=== PATIENT | female | born 1935 | race Caucasian/White ===

== ENCOUNTER → 2016-08-02 | Outpatient (CLI) | payer MEDICARE, OTHER ==
--- NOTE | 2016-08-03 08:16 | XCELERA REPORT ---
[address] [address] Lower Extremity Venous Evaluation Name: REMIGIO GOMEZ Age: 81 yrs Gender: Female : 1935 Patient Status: Outpatient Patient Location: Study Date: 08/02/2016 04:33 PM Procedure: Color flow and duplex imaging of the veins of the left lower extremity as well as the right Common Femoral vein. Reason For Study: LLE PAIN, SWELLING Ordering Physician: JOHNY WOOD Performed By: Roxane Sanchez Right Sided Venous Evaluation The right common femoral vein is fully compressible. Spontaneous and phasic flow is present in the right common femoral vein. Left Sided Venous Evaluation Normal vessel filling wall to wall, compression and augmentation as well as Colour flow down to the infrageniculate veins. Critical Findings Called [phone] at about 1700. Interpretation Summary No duplex evidence of DVT or obstruction in the left lower extremity nor in the right Common Femoral vein. : JOHNY WOOD > Nazario Ugalde
== END ==
LOC: SP 15:45
PROVIDERS: ATTEND Orthopaedic Surgery
DX: M79.605 Pain in left leg (principal); M79.89 Other specified soft tissue disorders
CPT/HCPCS: 93971

== ENCOUNTER → 2016-12-22 | Outpatient (CLI) | payer MEDICARE, OTHER ==
--- NOTE | 2016-12-22 16:28 | RADIOLOGY REPORT (SQ) ---
EXAM DESCRIPTION: T SPINE AP/LAT COMPLETED DATE/TIME: 12/22/2016 4:18 pm REASON FOR STUDY: LOW BACK PAIN I67.1 CEREBRAL ANEURYSM, NONRUPTURED M54.6 PAIN IN THORACIC SPINE M54.5 LOW BACK PAIN COMPARISON: None. NUMBER OF VIEWS: Two views. TECHNIQUE: AP and lateral radiographic images acquired of the thoracic spine. LIMITATIONS: None. FINDINGS: MINERALIZATION: Normal. ALIGNMENT: Normal. No scoliosis. Exaggerated kyphotic curvature. VERTEBRAE: No fracture or bone lesion. Maintained height, normal segmentation. DISCS: Mild disc space narrowing with small osteophytes. HARDWARE: None in the spine. MEDIASTINUM AND SOFT TISSUES: Normal heart size and aortic contour. No soft tissue abnormality. VISUALIZED LUNG STONE: Clear. OTHER: No other significant finding. IMPRESSION: CHRONIC DEGENERATIVE CHANGES. NO ACUTE FINDINGS. TECHNICAL DOCUMENTATION: JOB ID: [id number] [employer]- All Rights Reserved
--- NOTE | 2016-12-22 16:29 | RADIOLOGY REPORT (SQ) ---
EXAM DESCRIPTION: L SPINE 2 VIEWS COMPLETED DATE/TIME: 12/22/2016 4:18 pm REASON FOR STUDY: LOW BACK PAIN I67.1 CEREBRAL ANEURYSM, NONRUPTURED M54.6 PAIN IN THORACIC SPINE M54.5 LOW BACK PAIN COMPARISON: CT abdomen pelvis dated 01/01/2014. NUMBER OF VIEWS: Five views including obliques. TECHNIQUE: AP, lateral, oblique, and sacral radiographic images acquired of the lumbar spine. LIMITATIONS: None. FINDINGS: MINERALIZATION: Normal. SEGMENTATION: Normal. No transitional anatomy. ALIGNMENT: Mild S-shaped curvature. 5 mm retrolisthesis of L 2 on L3. VERTEBRAE: Old compression deformity of L2 with kyphoplasty cement. No acute fractures. DISCS: Mild disc space narrowing with small osteophytes. POSTERIOR ELEMENTS: Pedicles and facets are intact. No pars defect or posterior arch defects. HARDWARE: None in the spine. PARASPINAL SOFT TISSUES: Normal. PELVIS: Intact as visualized. No fractures or worrisome bone lesions. SI joints intact. OTHER: No other significant finding. IMPRESSION: CHRONIC DEGENERATIVE CHANGES. OLD COMPRESSION FRACTURE OF L2 WITH KYPHOPLASTY CEMENT. NO APPARENT ACUTE FINDINGS. TECHNICAL DOCUMENTATION: JOB ID: [id number] [employer]- All Rights Reserved
--- NOTE | 2016-12-22 18:40 | RADIOLOGY REPORT (SQ) ---
EXAM DESCRIPTION: MRA HEAD WITHOUT COMPLETED DATE/TIME: 12/22/2016 5:09 pm REASON FOR STUDY: CEREBRAL ANEURYSM I67.1 CEREBRAL ANEURYSM, NONRUPTURED M54.6 PAIN IN THORACIC SP INE M54.5 LOW BACK PAIN COMPARISON: Yearly since 2006 TECHNIQUE: Axial 3-D [id number] acquisition imaging performed through the brain in the area of t he [place]. Images reformatted using 3-D MIPS. LIMITATIONS: None. FINDINGS: Source images demonstrated old right temporal craniotomy. There is encephalomalacia in th e anterior right temporal lobe, stable compared to the previous exams. 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 This measures 1.4 x 1 cm in greatest diameter, and is unchan ged from 2006. 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 There is good flow in the remainder of the anterior circulation including the right and left middle c erebral artery and anterior cerebral arteries. Patent right posterior communicating artery. Vertebr obasilar system is unremarkable. IMPRESSION: Stable [place] MRA exam compared to studies dating back to 2006 TECHNICAL DOCUMENTATION: JOB ID: [id number]- All Rights Reserved
== END ==
LOC: RAD 15:38
PROVIDERS: ATTEND Internal Medicine
DX: I67.1 Cerebral aneurysm, nonruptured (principal); M54.6 Pain in thoracic spine; M54.5 Low back pain
CPT/HCPCS: 70544; 72070; 72100

== ENCOUNTER → 2017-02-26 | Outpatient (CLI) | payer MEDICARE, OTHER ==
--- NOTE | 2017-02-27 08:39 | RADIOLOGY REPORT (SQ) ---
EXAM DESCRIPTION: MRI HEAD COMBO COMPLETED DATE/TIME: 02/26/2017 3:28 pm REASON FOR STUDY: (H53.8) OTHER VISUAL DISTURBANCES (H57.12) OCULAR PAIN, LEFT EYE OTHER VISU H53.8 OTHER VISUAL DISTURBANCES H57.12 OCULAR PAIN, LEFT EYE COMPARISON: MRA of the head dated 12/22/2016 TECHNIQUE: Multiplanar imaging includes noncontrasted T1, T2, FLAIR, Diffusion with ADC map and post gadolinium contrast T1 sequences. Images stored on PACS. CONTRAST TYPE AND DOSE: 10 mL MultiHance RENAL FUNCTION: GFR > 60. LIMITATIONS: None. FINDINGS: ANATOMY: No anomalies. Normal vascular flow voids. Pituitary fossa normal. CSF SPACES: Atrophy-induced prominence of CSF spaces and ventricles. CEREBRUM: High-signal intensity lesions scattered throughout the white matter on FLAIR imaging with d istribution suggesting chronic micro-vascular ischemic change. No evidence of hemorrhage, mass, extra axial fluid collection or acute ischemic change. No enhancing lesions. There is focal encephalomalac ia in the right temporal lobe most consistent with an area of prior infarction. POSTERIOR FOSSA: No signal alteration. No hemorrhage. No edema, masses, or mass effect. Internal annie tory canals, cerebello-pontine angles, mastoids normal. No enhancing lesions. ORBITS: No masses. Globes normal. PARANASAL SINUSES: No fluid levels. Mucosa normal. DIFFUSION: Normal. No evidence of recent infarct. OTHER: Again there is occlusion of the right internal carotid artery. IMPRESSION: ATROPHY AND CHRONIC MICRO-VASCULAR ISCHEMIC CHANGES. 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 Other findings as noted above EVIDENCE OF ACUTE STROKE: NO. TECHNICAL DOCUMENTATION: JOB ID: [id number] [employer]- All Rights Reserved
== END ==
LOC: RAD 13:16
PROVIDERS: ATTEND Ophthalmology
DX: H53.8 Other visual disturbances (principal); H57.12 Ocular pain, left eye
CPT/HCPCS: 82565; 70553; A9577

== ENCOUNTER 2017-04-20 09:40 | Emergency (ER) | payer MEDICARE, OTHER ==
--- NOTE | 2017-04-20 10:01 | ER Document Report ---
ED Neuro Symptoms/Deficit - General Mode of Arrival: Medic Cannot obtain history due to: Altered mental status TRAVEL OUTSIDE OF THE [place] IN LAST 30 DAYS: No <KYRA FRAZIER - Last Filed: 04/20/17 11:27> <[email or web address] - Last Filed: 04/20/17 12:42> - General Chief Complaint: Altered Mental Status Stated Complaint: HEAD INJURY Time Seen by Provider: 04/20/17 09:45 - HPI Notes: 81-year-old female with a history of hypertension, hyperlipidemia, hyperthyroidism, GERD, CAD presents today via EMS with a GCS of 8. Patient fell at her dentist on April 17, at 1630 (4 days ago) hit the left side of her head. reports that patient did not go to any emergency services at that time for evaluation of head trauma. Per her , prior to head trauma , patient was awake alert, responsive, full functioning individual. noticed 2 days ago, patient started having garbled speech. also reported that yesterday, patient sat in chair, with nonverbal. This morning, noticed today that patient was "acting strange" and called 911. Patient is only on baby aspirin daily. Her she has erythema/edema to left lower extremity "that has been there " as long as he can remember. (KYRA FRAZIER) - Related Data Allergies/Adverse Reactions: No Known Allergies Allergy (Verified 02/25/13 18:35) Past Medical History - General Information source: Relative - spouse - Social History Smoking Status: Unknown if Ever Smoked Family History: Reviewed & Not Pertinent - Past Medical History Cardiac Medical History: Reports: Hx Hypertension Denies: Hx Coronary Artery Disease, Hx Heart Attack Pulmonary Medical History: Denies: Hx Asthma, Hx Bronchitis, Hx COPD, Hx Pneumonia, Hx Tuberculosis Neurological Medical History: Denies: Hx Cerebrovascular Accident, Hx Seizures GI Medical History: Denies: Hx Hepatitis, Hx Hiatal Hernia, Hx Ulcer Musculoskeltal Medical History: Reports Hx Arthritis Infectious Medical History: Denies: Hx Hepatitis Past Surgical History: Denies: Hx Mastectomy, Hx Open Heart Surgery, Hx Pacemaker - Immunizations Hx Diphtheria, Pertussis, Tetanus Vaccination: No <KYRA FRAZIER - Last Filed: 04/20/17 11:27> Review of Systems - Review of Systems Constitutional: See HPI EENT: No symptoms reported Cardiovascular: No symptoms reported Respiratory: No symptoms reported Gastrointestinal: No symptoms reported Genitourinary: No symptoms reported Musculoskeletal: No symptoms reported Skin: See HPI Neurological/Psychological: See HPI -: Yes All other systems reviewed and negative <KYRA FRAZIER - Last Filed: 04/20/17 11:27> <JONO PEREYRA - Last Filed: 04/20/17 12:42> - Review of Systems Notes: Limited ROS obtained from EMS and has been (KYRA FRAZIER) Physical Exam - Vital signs Interpretation: Normal <KYRA FRAZIER - Last Filed: 04/20/17 11:27> - Neurological [place] Coma Scale Eye Opening: To Voice [place] Coma Scale Verbal: Incomprehensible [place] Coma Scale Motor: Localizes to Pain [place] Coma Scale Total: 10 <JONO PEREYRA - Last Filed: 04/20/17 12:42> - Vital signs Vitals: BP 182/83 H 04/20/17 09:46 - Notes Notes: PHYSICAL EXAMINATION: GENERAL: Obtunded HEAD: Atraumatic, normocephalic. Left orbital ecchymosis extending to the left parietal area. No open wounds. No noted hematoma. EYES: Pupils equal round and reactive to light, conjunctiva are normal. Unable to determine EMOI due to being obtunded ENT: Nares patent, oropharynx clear without exudates. Moist mucous membranes. NECK: Unable to determine neck APR ON due to mental status supple without lymphadenopathy LUNGS: Breath sounds clear to auscultation bilaterally and equal. No wheezes rales or rhonchi. HEART: Regular rate and rhythm without murmurs ABDOMEN: Soft, nontender, nondistended abdomen. No guarding, no rebound. No masses appreciated. Female : deferred Musculoskeletal: r Noted abrasion to left knee. Noted ecchymosis on lateral aspect of left hip. No open wounds. NEUROLOGICAL: PERRLA, unable to assess EMOI. non verbal. unable to obey commands. Unable to assess for drift lag dysmetria due to unable to obey commands. Does respond to noxious stimuli. negative bambski. PSYCH: Normal mood, normal affect. SKIN: Warm, Dry, normal turgor, no rashes or lesions noted. see head note ( KYRA FRAZIER) Course - Laboratory Result Diagrams: 04/20/17 09:55 04/20/17 09:55 <KYRA FRAZIER - Last Filed: 04/20/17 11:27> - Laboratory Result Diagrams: 04/20/17 09:55 04/20/17 09:55 <JONO PEREYRA - Last Filed: 04/20/17 12:42> - Re-evaluation Re-evalutation: 04/20/17 10:54 0950- pt evaluated at bedside. orders placed. 1055-Dr. Coffey, radiologist, reported that patient has a left subdural hematoma that is approximately 13 mm wide with a midline shift of [address] of cervical spine and facial bones negative for any acute dislocations or fractures. [facility] called at 1056, consulted with Dr. Westley Grayson, trauma physician at [facility]. Agreed to accept patient. Patient is going by helicopter. Patient is stable at this time. made aware of patient's clinical status and agreed with plan of care. 1120: Dr. Ku Daughtery bedside to assess patient. Agreed with evaluation. (KYRA FRAZIER) 04/20/17 11:56 My evaluation of the pt shows GCS 9-10. Spo2 normal. Agree with transfer at this time 04/20/17 12:42 Chest patient requesting intubation as the patient is having waxing and waning of GCS. I agree with this transition crew agreed to intubate would be as backup that the ER currently staff multiple sick patients requiring intense monitoring (JONO PEREYRA) - Vital Signs Vital signs: Temp Pulse Resp BP Pulse Ox 99.1 F 89 17 181/72 H 97 04/20/17 11:31 04/20/17 09:56 04/20/17 12:03 04/20/17 12:03 04/20/17 12:03 - Laboratory Laboratory results interpreted by me: 04/20/17 04/20/17 04/20/17 09:55 09:55 09:55 RBC 3.55 L Hgb 11.4 L Hct 33.8 L Sodium 131.4 L Chloride 94 L NT-Pro-B Natriuret Pep 2840 H Urine Ketones 04/20/17 11:31 RBC Hgb Hct Sodium Chloride NT-Pro-B Natriuret Pep Urine Ketones TRACE H Discharge <KYRA FRAZIER - Last Filed: 04/20/17 11:27> <JONO PEREYRA - Last Filed: 04/20/17 12:42> - Discharge Clinical Impression: Subdural hematoma with midline shift Condition: Serious Disposition: [facility] Additional Instructions: pt transferred by helicopter to [facility] [place] for further evaluation of left sub-dural hematoma with midline shift. agree with plan of care. Referrals: DANY LEAVITT MD [Primary Care Provider] - Follow up as needed
[2017-04-20 10:18] LABS: ABSOLUTE LYMPHOCYTES (AUTO) 1.3 10^3/uL (0.5-4.7); ABSOLUTE MONOCYTES (AUTO) 0.8 10^3/uL (0.1-1.4); ABSOLUTE NEUT (AUTO) 4.5 10^3/uL (1.7-8.2); BASOPHILS % (AUTO) 0.3 % (0-2); EOSINOPHILS % (AUTO) 0.3 % (0-6); HEMATOCRIT 33.8 % (36.0-47.0); HEMOGLOBIN 11.4 g/dL (12.0-15.5); LYMPHOCYTES % (AUTO) 20.2 % (13-45); MEAN CORPUSCULAR HGB CONC 33.6 g/dL (32.0-36.0); MEAN CORPUSCULAR VOLUME 95 fl (80-97); MONOCYTES % (AUTO) 11.5 % (3-13); PLATELET COUNT 206 10^3/uL (150-450); RED BLOOD COUNT 3.55 10^6/uL (3.72-5.28); RED CELL DISTRIBUTION WIDTH 13.1 % (11.5-14.0); SEGMENTED NEUTROPHILS % (AUTO) 67.7 % (42-78); TOTAL CELLS COUNTED % (AUTO) 100 %; WHITE BLOOD COUNT 6.6 10^3/uL (4.0-10.5)
[2017-04-20 10:26] LABS: INTERNATIONAL RATION (INR) 0.94; PARTIAL THROMBOPLASTIN TIME 26.7 SEC (23.5-35.8); PROTHROMBIN TIME 13.3 SEC (11.4-15.4)
--- NOTE | 2017-04-20 10:33 | RADIOLOGY REPORT (SQ) ---
EXAM DESCRIPTION: CHEST SINGLE VIEW COMPLETED DATE/TIME: 04/20/2017 10:10 am REASON FOR STUDY: hit head, gcs 7 COMPARISON: Chest x-ray 08/30/2010 and thoracic spine 12/22/2016 EXAM PARAMETERS: NUMBER OF VIEWS: One view. TECHNIQUE: Single frontal radiographic view of the chest acquired. AP upright sitting. RADIATION DOSE: NA LIMITATIONS: None. FINDINGS: LUNGS AND PLEURA: The lungs appear clear except for few hazy markings at the left lung bas e, likely atelectatic. Correlate clinically. MEDIASTINUM AND HILAR STRUCTURES: Stable. HEART AND VASCULAR STRUCTURES: Heart normal in size. Normal vasculature. BONES: Multiple old appearing rib fractures are seen, as seen on the 12/22/2016 study. HARDWARE: None in the chest. OTHER: No other significant finding. IMPRESSION: Lungs appear clear except for a few hazy markings at the left lung base. TECHNICAL DOCUMENTATION: JOB ID: [id number] [email or web address]- All Rights Reserved
[2017-04-20 10:35] LABS: ALANINE AMINOTRANSFERASE 31 U/L (9-52); ALKALINE PHOSPHATASE 62 U/L (38-126); ANION GAP 9 (5-19); ASPARTATE AMINO TRANSFERASE 29 U/L (14-36); BILIRUBIN,DIRECT 0.3 mg/dL (0.0-0.4); BLOOD UREA NITROGEN 17 mg/dL (7-20); CALCIUM 9.4 mg/dL (8.4-10.2); CARBON DIOXIDE 28 mmol/L (22-30); CHLORIDE 94 mmol/L (98-107); CREATINE KINASE 134 U/L (30-135); GLUCOSE 100 mg/dL (75-110); MAGNESIUM 1.7 mg/dL (1.6-2.3); POTASSIUM 4.1 mmol/L (3.6-5.0); SODIUM 131.4 mmol/L (137-145); TOTAL PROTEIN 6.5 g/dL (6.3-8.2)
[2017-04-20 10:51] LABS: CREATINE KINASE MB 1.7 ng/mL (<4.55); TROPONIN I 0.016 ng/mL
--- NOTE | 2017-04-20 11:03 | RADIOLOGY REPORT (SQ) ---
EXAM DESCRIPTION: CT FACIAL AREA WITHOUT COMPLETED DATE/TIME: 04/20/2017 10:47 am REASON FOR STUDY: hit head, gcs 7 COMPARISON: Correlated with CT brain from same date, separately dictated. TECHNIQUE: Noncontrasted images through the facial bones and orbits windowed for bone and soft tissu e. Additional coronal and sagittal reconstructed images reviewed. All images stored on PACS. All CT scanners at this facility use dose modulation, iterative reconstruction, and/or weight based d osing when appropriate to reduce radiation dose to as low as reasonably achievable (ALARA). [facility]: Dose Right [facility]: CareDose [facility]: Dose Right [facility]: Teradose 4D [facility]: Smart [employer] RADIATION DOSE: CT Rad equipment meets quality standard of care and radiation dose reduction techniq ues were employed. CTDIvol: 30.4 mGy. DLP: 585 mGy-cm. mGy. LIMITATIONS: None. FINDINGS: FACIAL BONES: No fracture or bone lesion. ORBITS: Intact. No fracture. Symmetric intact globes and retroorbital soft tissues. PARANASAL SINUSES: Clear. No significant mucosal thickening, mass or fluid. No nasal polyps. Maxill lyn sinus outlets are patent. SOFT TISSUES: Mild soft tissue swelling along the left periorbital tissues. INFERIOR BRAIN: See separate dictation. There is extra-axial blood on the left consistent with acute hematoma. OTHER: Previous right temporal craniotomy. Artifact along the skullbase related to prior presumed an eurysm coiling. IMPRESSION: 1. No facial fracture. 2. Acute intracranial hemorrhage, see separately dictated CT br ain from same date. TECHNICAL DOCUMENTATION: JOB ID: [id number] Quality ID # [id number]: Final reports with documentation of one or more dose reduction techniques (e.g., Au tomated exposure control, adjustment of the mA and/or kV according to patient size, use of iterative reconstruction technique) 2010 [employer]- All Rights Reserved
--- NOTE | 2017-04-20 11:04 | RADIOLOGY REPORT (SQ) ---
EXAM DESCRIPTION: CT CERVICAL SPINE WITHOUT COMPLETED DATE/TIME: 04/20/2017 10:47 am REASON FOR STUDY: hit head, gcs 7 COMPARISON: CT brain 04/20/2017 TECHNIQUE: Axial images acquired through the cervical spine without intravenous contrast. Images re viewed with lung, soft tissue and bone windows. Reconstructed coronal and sagittal MPR images review ed. Images stored on PACS. All CT scanners at this facility use dose modulation, iterative reconstruction, and/or weight based d osing when appropriate to reduce radiation dose to as low as reasonably achievable (ALARA). [facility]: Dose Right [facility]: CareDose [facility]: Dose Right [facility]: Teradose 4D [facility]: [employer] RADIATION DOSE: CT Rad equipment meets quality standard of care and radiation dose reduction techniq ues were employed. CTDIvol: 11.2 mGy. DLP: 244 mGy-cm. mGy. LIMITATIONS: None. FINDINGS: On the images through the cranium, there is a left-sided acute subdural hemorrhage on axia l images 1-4. This is better seen on the accompanying CT brain study today. ALIGNMENT: Anatomic. MINERALIZATION: Normal. VERTEBRAL BODIES: There is bony sclerosis along the upper endplate of T2 and T3 from subacute to inventory specialist manager casey upper endplate compressions. Cervical vertebral bodies are intact. DISCS: Multilevel degenerative disc changes. No high-grade central canal stenosis. Multilevel mild- to-moderate foraminal narrowing FACETS, LATERAL MASSES, POSTERIOR ELEMENTS: No fractures. No dislocation. No acute findings. HARDWARE: None in the spine. VISUALIZED RIBS: No fractures. LUNG APICES AND SOFT TISSUES: No significant or acute findings. OTHER: No other significant finding. IMPRESSION: Left-sided hemispheric subdural acute hemorrhage seen on the uppermost cuts through the exam No acute cervical spine fracture or malalignment TECHNICAL DOCUMENTATION: JOB ID: [id number] Quality ID # [id number]: Final reports with documentation of one or more dose reduction techniques (e.g., Au tomated exposure control, adjustment of the mA and/or kV according to patient size, use of iterative reconstruction technique) 2010 [employer]- All Rights Reserved
--- NOTE | 2017-04-20 11:07 | RADIOLOGY REPORT (SQ) ---
EXAM DESCRIPTION: CT HEAD WITHOUT COMPLETED DATE/TIME: 04/20/2017 10:47 am REASON FOR STUDY: hit head, gcs 7 COMPARISON: MR 02/26/2017 TECHNIQUE: Axial images acquired through the brain without intravenous contrast. Images reviewed wi th bone, brain and subdural windows. Images stored on PACS. All CT scanners at this facility use dose modulation, iterative reconstruction, and/or weight based d osing when appropriate to reduce radiation dose to as low as reasonably achievable (ALARA). [facility]: Dose Right [facility]: CareDose [facility]: Dose Right [facility]: Teradose 4D [facility]: Smart [employer] RADIATION DOSE: CT Rad equipment meets quality standard of care and radiation dose reduction techniq ues were employed. CTDIvol: 64.6 mGy. DLP: 1163 mGy-cm.mGy. LIMITATIONS: None. FINDINGS: VENTRICLES: Prominent. Slight midline shift to the right of 5 mm. CEREBRUM: A subdural hematoma is seen in the left parietal region extending from the frontal to poste rior parietal area. 13 mm greatest diameter. Slight midline shift of 5 mm. 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 Surgical clips sella turcica. CEREBELLUM: No masses. No hemorrhage. No alteration of density. No evidence for acute infarction. EXTRAAXIAL SPACES: Left-sided subdural hematoma ORBITS AND GLOBE: No intra- or extraconal masses. Normal contour of globe without masses. CALVARIUM: No fracture. Prior operative change on the right. PARANASAL SINUSES: Clear as visualized. SOFT TISSUES: scalp hematoma on the left. Underlying calvarium intact. OTHER: Findings called to Dr. Ying of the ED at the time of study. IMPRESSION: Left-sided subdural hematoma. Slight midline shift. EVIDENCE OF ACUTE STROKE: NO. TECHNICAL DOCUMENTATION: JOB ID: [id number] Quality ID # [id number]: Final reports with documentation of one or more dose reduction techniques (e.g., Au tomated exposure control, adjustment of the mA and/or kV according to patient size, use of iterative reconstruction technique) 2010 [employer]- All Rights Reserved
[2017-04-20 11:59] LABS: AMORPHOUS SEDIMENT,URINE TRACE /HPF; APPEARANCE,URINE SLIGHTLY-CLOUDY; BILIRUBIN,URINE NEGATIVE (NEGATIVE); COLOR,URINE YELLOW; GLUCOSE, URINE NEGATIVE (NEGATIVE); KETONES,URINE TRACE mg/dL (NEGATIVE); LEUKOCYTE ESTERASE,URINE NEGATIVE (NEGATIVE); NITRITE,URINE NEGATIVE (NEGATIVE); PROTEIN,URINE NEGATIVE (NEGATIVE); UROBILINOGEN,URINE NEGATIVE mg/dL (<2.0)
--- NOTE | 2017-04-20 12:41 | RADIOLOGY REPORT (SQ) ---
EXAM DESCRIPTION: CHEST SINGLE VIEW portable COMPLETED DATE/TIME: 04/20/2017 12:16 pm REASON FOR STUDY: s/p intubation by EMS COMPARISON: Same date follow-up, post intubation. EXAM PARAMETERS: NUMBER OF VIEWS: One view. TECHNIQUE: Single frontal radiographic view of the chest acquired. Portable RADIATION DOSE: NA LIMITATIONS: None. FINDINGS: LUNGS AND PLEURA: The lungs remain clear except for some increased density along the right heart border concerning for atelectasis/ infiltrate. Minor blunting left costophrenic angle MEDIASTINUM AND HILAR STRUCTURES: No masses. Contour normal. HEART AND VASCULAR STRUCTURES: Heart normal in size. Normal vasculature. BONES: Old rib fractures. HARDWARE: Endotracheal tube tip above the [place], with aeration of both lung mendes. OTHER: No other significant finding. IMPRESSION: Endotracheal tube tip above the [place] with aeration of both lung mendes. The lungs remain clear except for some increased density along the right heart border, concerning for atelectasis/ infiltrate. TECHNICAL DOCUMENTATION: JOB ID: [id number] [employer]- All Rights Reserved
[2017-04-20 13:37] VITALS: BP 189/92
== END 2017-04-20 12:12 | disposition short-term general hospital (02) ==
LOC: ER 09:40
DX: S06.5X9A Traumatic subdural hemorrhage with loss of consciousness of unspecified duration, initial encounter (principal); R40.2430 Glasgow coma scale score 3-8, unspecified time; R41.82 Altered mental status, unspecified; I10 Essential (primary) hypertension; E78.5 Hyperlipidemia, unspecified; K21.9 Gastro-esophageal reflux disease without esophagitis; I25.10 Atherosclerotic heart disease of native coronary artery without angina pectoris; W19.XXXA Unspecified fall, initial encounter; Y92.531 Health care provider office as the place of occurrence of the external cause
CPT/HCPCS: 36415; 51702; 70450; 70486; 71045; 72125; 80053; 81001; 82550; 82553; 83735; 83880; 84484; 85025; 85610; 85730; 87086; 99285

== ENCOUNTER 2017-06-14 15:20 | Inpatient (IN) | payer MEDICARE, OTHER ==
[2017-06-14 15:49] LABS: ABSOLUTE EOSINOPHILS # (AUTO) 0.1 10^3/uL (0.0-0.6); ABSOLUTE LYMPHOCYTES (AUTO) 1.1 10^3/uL (0.5-4.7); ABSOLUTE MONOCYTES (AUTO) 0.5 10^3/uL (0.1-1.4); ABSOLUTE NEUT (AUTO) 2.6 10^3/uL (1.7-8.2); BASOPHILS % (AUTO) 1.1 % (0-2); EOSINOPHILS % (AUTO) 1.4 % (0-6); HEMATOCRIT 34.7 % (36.0-47.0); HEMOGLOBIN 11.2 g/dL (12.0-15.5); LYMPHOCYTES % (AUTO) 24.5 % (13-45); MEAN CORPUSCULAR HEMOGLOBIN 28.2 pg (27.0-33.4); MEAN CORPUSCULAR HGB CONC 32.4 g/dL (32.0-36.0); MEAN CORPUSCULAR VOLUME 87 fl (80-97); MONOCYTES % (AUTO) 11.9 % (3-13); PLATELET COUNT 342 10^3/uL (150-450); RED BLOOD COUNT 3.99 10^6/uL (3.72-5.28); RED CELL DISTRIBUTION WIDTH 15.6 % (11.5-14.0); SEGMENTED NEUTROPHILS % (AUTO) 61.1 % (42-78); TOTAL CELLS COUNTED % (AUTO) 100 %; WHITE BLOOD COUNT 4.3 10^3/uL (4.0-10.5)
--- NOTE | 2017-06-14 15:54 | ER Document Report ---
ED General - General Stated Complaint: SHORTNESS OF BREATH Time Seen by Provider: 06/14/17 15:52 Mode of Arrival: Ambulatory Information source: Patient Notes: 81-year-old female presents with complaint of shortness of breath and lower extremity swelling. Patient states that for the last 2 weeks she has experienced shortness of breath with activity. She also states that her legs have been swollen, red and weeping. Patient was found to have a recent intracranial hemorrhage after sustaining a head injury after a fall and was admitted to [facility] and then rehabilitation for over 4 weeks. Denies any prior similar symptoms, history of congestive heart failure and history of atrial fibrillation. She states that she saw her home visit field care manager today and was found to be in new onset A. fib. TRAVEL OUTSIDE OF THE [place] IN LAST 30 DAYS: No - HPI Onset: Last week Onset/Duration: Gradual Quality of pain: No pain Severity: None Pain Level: Denies Associated symptoms: Other - Lower extremity swelling Exacerbated by: Supine, Movement, Walking, Coughing, Deep breathing Relieved by: Sitting, Remaining still Similar symptoms previously: No Recently seen / treated by doctor: Yes - Cardiology - Related Data Allergies/Adverse Reactions: No Known Allergies Allergy (Verified 04/20/17 13:04) Past Medical History - Social History Smoking Status: Never Smoker Frequency of alcohol use: None Drug Abuse: None Lives with: Family Family History: Reviewed & Not Pertinent Patient has suicidal ideation: No - Past Medical History Cardiac Medical History: Reports: Hx Hypertension Denies: Hx Coronary Artery Disease, Hx Heart Attack Pulmonary Medical History: Denies: Hx Asthma, Hx Bronchitis, Hx COPD, Hx Pneumonia, Hx Tuberculosis Neurological Medical History: Reports: Hx Cerebrovascular Accident. Denies: Hx Seizures Renal/ Medical History: Denies: Hx Peritoneal Dialysis GI Medical History: Denies: Hx Hepatitis, Hx Hiatal Hernia, Hx Ulcer Musculoskeltal Medical History: Reports None, Reports Hx Arthritis Infectious Medical History: Denies: Hx Hepatitis Past Surgical History: Reports: Hx Appendectomy, Hx Cholecystectomy, Hx Hysterectomy. Denies: Hx Mastectomy, Hx Open Heart Surgery, Hx Pacemaker - Immunizations Hx Diphtheria, Pertussis, Tetanus Vaccination: No Review of Systems - Review of Systems Constitutional: denies: Chills, Diaphoresis, Fever EENT: No symptoms reported Cardiovascular: Chest pain, Palpitations, Orthopnea Respiratory: Short of breath. denies: Hurts to breathe Gastrointestinal: No symptoms reported Genitourinary: No symptoms reported. denies: Dysuria Musculoskeletal: No symptoms reported Skin: Change in color - Erythema of the lower extremities bilaterally. Skin blisters of the lower extremities bilaterally Physical Exam - Vital signs Vitals: Pulse Ox 96 06/14/17 15:22 Interpretation: Normal - General General appearance: Appears well, Alert - HEENT Head: Normocephalic, Atraumatic Eyes: Normal Conjunctiva: Normal Cornea: Normal Extraocular movements intact: Yes Pupils: PERRL - Respiratory Respiratory status: No respiratory distress. No: Agonal respirations, Cyanosis , Depressed respirations Chest status: Nontender. No: No pleuritic chest pain Breath sounds: Normal, Decreased air movement Chest palpation: Normal - Cardiovascular Rhythm: Irregularly irregular. No: Tachycardia, Bradycardia Heart sounds: Normal auscultation Murmur: No Friction rub: No Nazario's crunch: No - Abdominal Inspection: Normal Distension: No distension Bowel sounds: Normal Tenderness: Nontender Organomegaly: No organomegaly - Back Back: Normal, Nontender. No: CVA tenderness - Extremities General upper extremity: Normal inspection - Lateral lower extremity 2+ pitting edema with associated erythema and multiple skin blisters., Nontender, Normal color, Normal ROM, Normal temperature General lower extremity: Normal inspection, Nontender, Normal color, Normal ROM , Normal temperature, Normal weight bearing. No: Jaimie's sign Course - Re-evaluation Re-evalutation: A 81-year-old female presents after being found to be in new onset atrial fibrillation by her home visit field care manager. Upon arrival vitals were reviewed and patient is mildly hypertensive. She is in no respiratory distress. She does not appear toxic or dehydrated. She was placed on surveillance monitor and EKG was obtained which did show the patient to be in atrial fibrillation with a controlled rate. X-ray was obtained and showed worsening bilateral pleural effusions. Patient was administered Lasix and Nitropaste was placed. Bedside ultrasound was performed which showed no pericardial effusion but poor contractility. She does not want to be transferred back to [place] where she was just treated for an intracranial hemorrhage. Patient remained stable throughout her ED course. She was discussed with who agreed to admission. Patient was admitted to telemetry. 06/14/17 19:24 06/14/17 19:26 Chest X-Ray 06/14/17 15:22 IMPRESSION: Moderate size bilateral pleural effusions as noted above. I cannot exclude some underlying atelectasis or infiltrate in the lung bases. Other findings as noted above Laboratory 06/14/17 06/14/17 06/14/17 14:57 14:57 14:57 WBC 4.3 RBC 3.99 Hgb 11.2 L Hct 34.7 L MCV 87 MCH 28.2 MCHC 32.4 RDW 15.6 H Plt Count 342 Seg Neutrophils % 61.1 Lymphocytes % 24.5 Monocytes % 11.9 Eosinophils % 1.4 Basophils % 1.1 Absolute Neutrophils 2.6 Absolute Lymphocytes 1.1 Absolute Monocytes 0.5 Absolute Eosinophils 0.1 Absolute Basophils 0.0 Sodium 137.5 Potassium 4.6 Chloride 97 L Carbon Dioxide 28 Anion Gap 13 BUN 16 Creatinine 0.77 Est GFR ( Amer) > 60 Est GFR (Non-Af Amer) > 60 Glucose 86 Calcium 9.6 Total Bilirubin 0.6 Direct Bilirubin 0.3 Neonat Total Bilirubin Not Reportable Neonat Direct Bilirubin Not Reportable Neonat Indirect Bili Not Reportable AST 35 ALT 32 Alkaline Phosphatase 72 Creatine Kinase 88 CK-MB (CK-2) 1.60 Troponin I < 0.012 NT-Pro-B Natriuret Pep 2370 H Total Protein 6.5 Albumin 4.2 Urine Color Urine Appearance Urine pH Ur Specific Tyler Urine Protein Urine Glucose (UA) Urine Ketones Urine Blood Urine Nitrite Urine Bilirubin Urine Urobilinogen Ur Leukocyte Esterase Urine WBC (Auto) Urine RBC (Auto) Squamous Epi Cells Auto Urine Mucus (Auto) Urine Ascorbic Acid 06/14/17 17:02 WBC RBC Hgb Hct MCV MCH MCHC RDW Plt Count Seg Neutrophils % Lymphocytes % Monocytes % Eosinophils % Basophils % Absolute Neutrophils Absolute Lymphocytes Absolute Monocytes Absolute Eosinophils Absolute Basophils Sodium Potassium Chloride Carbon Dioxide Anion Gap BUN Creatinine Est GFR ( Amer) Est GFR (Non-Af Amer) Glucose Calcium Total Bilirubin Direct Bilirubin Neonat Total Bilirubin Neonat Direct Bilirubin Neonat Indirect Bili AST ALT Alkaline Phosphatase Creatine Kinase CK-MB (CK-2) Troponin I NT-Pro-B Natriuret Pep Total Protein Albumin Urine Color YELLOW Urine Appearance CLEAR Urine pH 7.0 Ur Specific Tyler 1.010 Urine Protein NEGATIVE Urine Glucose (UA) NEGATIVE Urine Ketones NEGATIVE Urine Blood NEGATIVE Urine Nitrite NEGATIVE Urine Bilirubin NEGATIVE Urine Urobilinogen NEGATIVE Ur Leukocyte Esterase NEGATIVE Urine WBC (Auto) 0 Urine RBC (Auto) 0 Squamous Epi Cells Auto 1 Urine Mucus (Auto) RARE Urine Ascorbic Acid NEGATIVE - Vital Signs Vital signs: Temp Pulse Resp BP Pulse Ox 98.0 F 91 14 123/70 97 06/16/17 07:19 06/16/17 09:50 06/16/17 09:50 06/16/17 07:19 06/16/17 09:50 - Laboratory Result Diagrams: 06/15/17 04:57 06/15/17 04:57 Laboratory results interpreted by me: 06/14/17 06/14/17 06/14/17 14:57 14:57 14:57 Hgb 11.2 L Hct 34.7 L RDW 15.6 H Chloride 97 L NT-Pro-B Natriuret Pep 2370 H Discharge - Discharge Clinical Impression: Atrial fibrillation with normal ventricular rate, Pleural effusion, Peripheral edema CHF (congestive heart failure) Qualifiers: Heart failure type: diastolic Heart failure chronicity: unspecified Qualified Code(s): I50.30 - Unspecified diastolic (congestive) heart failure Condition: Good Disposition: ADMITTED INPATIENT Admitting Provider: Hospitalist Unit Admitted: Telemetry
[2017-06-14 16:09] LABS: ALANINE AMINOTRANSFERASE 32 U/L (9-52); ALBUMIN 4.2 g/dL (3.5-5.0); ALKALINE PHOSPHATASE 72 U/L (38-126); ANION GAP 13 (5-19); ASPARTATE AMINO TRANSFERASE 35 U/L (14-36); BILIRUBIN,DIRECT 0.3 mg/dL (0.0-0.4); BILIRUBIN,TOTAL 0.6 mg/dL (0.2-1.3); BLOOD UREA NITROGEN 16 mg/dL (7-20); CALCIUM 9.6 mg/dL (8.4-10.2); CARBON DIOXIDE 28 mmol/L (22-30); CHLORIDE 97 mmol/L (98-107); CREATINE KINASE 88 U/L (30-135); GLUCOSE 86 mg/dL (75-110); POTASSIUM 4.6 mmol/L (3.6-5.0); SODIUM 137.5 mmol/L (137-145); TOTAL PROTEIN 6.5 g/dL (6.3-8.2)
--- NOTE | 2017-06-14 16:18 | RADIOLOGY REPORT (SQ) ---
EXAM DESCRIPTION: CHEST SINGLE VIEW COMPLETED DATE/TIME: 06/14/2017 4:09 pm REASON FOR STUDY: bed 16 db COMPARISON: 04/20/2017 EXAM PARAMETERS: NUMBER OF VIEWS: One view. TECHNIQUE: Single frontal radiographic view of the chest acquired. RADIATION DOSE: NA LIMITATIONS: None. FINDINGS: LUNGS AND PLEURA: Moderate size bilateral pleural effusions are identified showing interva l increase in size as compared to the previous study. I cannot exclude some underlying atelectasis o r infiltrate in the lung bases. MEDIASTINUM AND HILAR STRUCTURES: No masses. Contour normal. HEART AND VASCULAR STRUCTURES: Cardiac silhouette is partially obscured due to adjacent densities but appears enlarged. A degree of pulmonary vascular congestion is seen. BONES: No acute findings. HARDWARE: None in the chest. OTHER: No other significant finding. IMPRESSION: Moderate size bilateral pleural effusions as noted above. I cannot exclude some underly ing atelectasis or infiltrate in the lung bases. Other findings as noted above TECHNICAL DOCUMENTATION: JOB ID: [id number] [employer]- All Rights Reserved Reading location - IP/workstation name: [email or web address]
[2017-06-14 16:20] LABS: NT PRO BNP 2370 pg/mL (<450)
[2017-06-14 16:22] LABS: TROPONIN I < 0.012 ng/mL
[2017-06-14] MEDS ORDERED: NITROGLYCERIN 2% OINTMENT 1 GM PACKET TP ONE (16:30)
[2017-06-14 17:18] LABS: APPEARANCE,URINE CLEAR; BILIRUBIN,URINE NEGATIVE (NEGATIVE); COLOR,URINE YELLOW; GLUCOSE, URINE NEGATIVE (NEGATIVE); KETONES,URINE NEGATIVE (NEGATIVE); LEUKOCYTE ESTERASE,URINE NEGATIVE (NEGATIVE); NITRITE,URINE NEGATIVE (NEGATIVE); PROTEIN,URINE NEGATIVE (NEGATIVE); UROBILINOGEN,URINE NEGATIVE mg/dL (<2.0)
--- NOTE | 2017-06-14 18:13 | EKG REPORT ---
SEVERITY:- ABNORMAL ECG - ATRIAL FIBRILLATION, V-RATE 71-122 LEFT AXIS DEVIATION LOW VOLTAGE IN FRONTAL LEADS BORDERLINE R WAVE PROGRESSION, ANTERIOR LEADS : Confirmed by: Jt Dumont MD 14-Jun-2017 18:12:43
[2017-06-14] MEDS ORDERED: OXYCODONE-ACETAMINOPHEN 5-325 MG TABLET PO PRN (18:18)
[2017-06-14] MEDS ORDERED: ONDANSETRON HCL INJ/PF 4 MG/2 ML SDV IV PRN (18:18)
[2017-06-14] MEDS ORDERED: TEMAZEPAM 7.5 MG CAPSULE PO PRN (18:18)
[2017-06-14] MEDS ORDERED: ACETAMINOPHEN 325 MG TABLET PO PRN (18:18)
[2017-06-14] MEDS ORDERED: IPRATROPIUM/ALBUTEROL 0.5-2.5 MG/3 ML AMPUL NEB PRN (18:18)
--- NOTE | 2017-06-14 18:44 | PDOC H&P ---
History of Present Illness Admission Date/PCP: DANY LEAVITT MD Patient complains of: Difficulty breathing and shortness of breath as well as bilateral leg swelling and pain History of Present Illness: REMIGIO GOMEZ is a 81 year old female with Recent left-sided subdural hematoma with a slight midline shift and she was transferred to [place] where she apparently had surgical interventions details of which not available. Patient was in the rehab for about 4 weeks and just left about 10 days ago. She says she has had some lower extremity swelling for a while but it appeared to get worse recently. He was told at the rehab that she needed to follow-up with a conservation engineer and in fact appointment with Dr. Meek was today. The subsequently sent her to the emergency room for further evaluation felt she was in decompensated CHF. Patient denies any prior history of CHF and in fact denies any prior history of atrial fibrillation although she was found to be in atrial fibrillation with a controlled response. Considering the fact that patient has been in hospital as recently as April of this year she knows nothing about atrial fibrillation this may indeed be new Currently denies any chest pain nausea vomiting or palpitations. Patient also gives a remote history of a intracranial hemorrhage in 2002 that she had surgery at [facility]. The recent subdural hematoma followed a fall Past Medical History Cardiac Medical History: Reports: Hypertension Denies: Coronary Artery Disease, Myocardial Infarction Pulmonary Medical History: Denies: Asthma, Bronchitis, Chronic Obstructive Pulmonary Disease (COPD), Pneumonia, Tuberculosis Neurological Medical History: Denies: Seizures GI Medical History: Denies: Hepatitis, Hiatal Hernia Musculoskeltal Medical History: Reports: Arthritis Hematology: Denies: Anemia, Sickle Cell Disease Past Surgical History Past Surgical History: Reports: Appendectomy, Cholecystectomy, Hysterectomy Denies: Amputation, Mastectomy, Pacemaker Social History Information Source: Patient Lives with: Spouse/Significant other Smoking Status: Never Smoker Frequency of Alcohol Use: None - Advance Directive Resuscitation Status: Do Not Intubate Surrogate healthcare decision maker:: Spouse Sandeep Gomez [phone] Family History Family History: Reviewed & Not Pertinent Parental Family History Reviewed: No - unknown Children Family History Reviewed: Yes Sibling(s) Family History Reviewed.: Unknown Medication/Allergy Home Medications: Cyclosporine 0.05% Oph Emulsio [Restasis 0.05% Opthalmic Droperette] 1 drop OU Q12 06/14/17 Furosemide [Lasix 20 mg Tablet] 20 mg PO QAM 06/14/17 Gabapentin [Neurontin 300 mg Capsule] 300 mg PO Q12 06/14/17 Levothyroxine Sodium [Synthroid 0.075 mg Tablet] 0.075 mg PO DAILY 06/14/17 Metoprolol Tartrate [Lopressor 25 mg Tablet] 25 mg PO Q12 06/14/17 Omeprazole 40 mg PO DAILY 06/14/17 Simvastatin [Zocor 20 mg Tablet] 20 mg PO QHS 06/14/17 Tamsulosin HCl [Flomax 0.4 mg Cap.sr] 0.4 mg PO DAILY 06/14/17 Temazepam [Restoril 7.5 mg Capsule] 7.5 mg PO QHS 06/14/17 Allergies/Adverse Reactions: No Known Allergies Allergy (Verified 04/20/17 13:04) Review of Systems All systems: reviewed and no additional remarkable complaints except as stated Constitutional: PRESENT: weakness, weight gain Eyes: ABSENT: visual disturbances Nose, Mouth, and Throat: ABSENT: headache(s) Cardiovascular: PRESENT: dyspnea on exertion, edema. ABSENT: chest pain, palpitations Respiratory: PRESENT: dyspnea. ABSENT: hemoptysis Gastrointestinal: PRESENT: as per HPI Musculoskeletal: PRESENT: as per HPI Neurological: PRESENT: abnormal speech. ABSENT: frequent falls Physical Exam Vital Signs: Temp Pulse Resp BP Pulse Ox 98.5 F 19 160/88 H 97 06/14/17 16:03 06/14/17 17:07 06/14/17 17:07 06/14/17 15:36 General appearance: PRESENT: no acute distress, other - Elderly female in no distress Head exam: PRESENT: atraumatic, other - Scalp incision which is barely visible Eye exam: PRESENT: conjunctiva pink, EOMI, PERRLA. ABSENT: scleral icterus Ear exam: PRESENT: normal external ear exam Neck exam: PRESENT: JVD - About 10 cm. ABSENT: carotid bruit, lymphadenopathy, thyromegaly Respiratory exam: PRESENT: decreased breath sounds, rales - Bibasal, rhonchi. ABSENT: accessory muscle use, tachypnea, wheezes Cardiovascular exam: PRESENT: irregular rhythm, +S1, +S2. ABSENT: gallop Pulses: PRESENT: normal dorsalis pedis pul GI/Abdominal exam: PRESENT: normal bowel sounds, soft. ABSENT: distended, guarding, mass, organolmegaly, rebound, tenderness Extremities exam: PRESENT: calf tenderness, pedal edema, tenderness - Lower extremity, other - 3+ edema Bilateral erythema Musculoskeletal exam: PRESENT: ambulatory - She is apparently ambulatory with walker, tenderness. ABSENT: full ROM, normal inspection Neurological exam: PRESENT: alert, awake, oriented to person, oriented to place , oriented to time, oriented to situation, CN II-XII grossly intact, other - Mild dysarthria. ABSENT: motor sensory deficit Psychiatric exam: PRESENT: appropriate affect Skin exam: PRESENT: erythema - Lower extremities Results Laboratory Results: 06/14/17 14:57 06/14/17 14:57 06/14/17 06/14/17 14:57 14:57 WBC 4.3 RBC 3.99 Hgb 11.2 L Hct 34.7 L MCV 87 MCH 28.2 MCHC 32.4 RDW 15.6 H Plt Count 342 Seg Neutrophils % 61.1 Lymphocytes % 24.5 Monocytes % 11.9 Eosinophils % 1.4 Basophils % 1.1 Absolute Neutrophils 2.6 Absolute Lymphocytes 1.1 Absolute Monocytes 0.5 Absolute Eosinophils 0.1 Absolute Basophils 0.0 Sodium 137.5 Potassium 4.6 Chloride 97 L Carbon Dioxide 28 Anion Gap 13 BUN 16 Creatinine 0.77 Est GFR ( Amer) > 60 Est GFR (Non-Af Amer) > 60 Glucose 86 Calcium 9.6 Total Bilirubin 0.6 AST 35 ALT 32 Alkaline Phosphatase 72 Total Protein 6.5 Albumin 4.2 06/14/17 06/14/17 14:57 14:57 Creatine Kinase 88 CK-MB (CK-2) 1.60 Troponin I < 0.012 NT-Pro-B Natriuret Pep 2370 H EKG Comments: Atrial fibrillation with controlled rate Impressions: Chest X-Ray 06/14/17 15:22 IMPRESSION: Moderate size bilateral pleural effusions as noted above. I cannot exclude some underlying atelectasis or infiltrate in the lung bases. Other findings as noted above Assessment & Plan - Diagnosis (1) Atrial fibrillation with normal ventricular rate Is this a current diagnosis for this admission?: Yes Plan: Patient apparently gives no history of this. A two-dimensional echocardiogram will be obtained and I will go ahead and obtain Doppler studies to rule out DVT. If clinically warranted CT angiogram may be done to rule out underlying PE (2) CHF (congestive heart failure) Qualifiers: Heart failure chronicity: unspecified Is this a current diagnosis for this admission?: Yes Plan: Chronicity is unclear at this time as patient denies any prior history and there is no echo reports on the computer records. She was placed on vasodilator as well as parenteral diuretic. Electrolytes will be monitored (3) Peripheral edema Is this a current diagnosis for this admission?: Yes Plan: secondary to above however this appears to be fairly extensive and patient also has tenderness with the right lower extremity more swollen than the left lower extremity. Given that this patient has recently had a subdural hematoma and she has had surgery I think is reasonable to rule out venous thromboembolism and so we will order a Doppler studies (4) Pleural effusion Is this a current diagnosis for this admission?: Yes Plan: possibly transudative secondary to chf. We will continue with diuresis and review with serial chest x-ray as needed (5) Hypothyroidism Qualifiers: Hypothyroidism type: acquired Qualified Code(s): E03.9 - Hypothyroidism, unspecified Is this a current diagnosis for this admission?: Yes Plan: Thyroid function tests will be obtained and adjustments made if needed to thyroid replacement (6) Subdural hematoma Is this a current diagnosis for this admission?: Yes Plan: Although this happened in April of this year this will bear any mild as this precludes treating with any anticoagulation and so I have included in the current diagnosis - Time Time Spent: 50 to 70 Minutes Critical Time spent with patient: Less than 15 minutes Medications reviewed and adjusted accordingly: Yes Anticipated discharge: Home Within: within 72 hours - Inpatient Certification Based on my medical assessment, after consideration of the patient's comorbidities, presenting symptoms, or acuity I expect that the services needed warrant INPATIENT care.: Yes I certify that my determination is in accordance with my understanding of Medicare's requirements for reasonable and necessary INPATIENT services [42 CFR 412.3e].: Yes Medical Necessity: Need For Continuous Telemetry Monitoring, Risk of Complication if Not Cared For in Hospital - Plan Summary Plan Summary: Patient is a DO NOT INTUBATE only as per my discussions with her and her spouse
[2017-06-14] MEDS: FUROSEMIDE INJ/PF 40 MG/4 ML SDV IV SCH (22:45)
[2017-06-14] MEDS: METOPROLOL TARTRATE 25 MG TABLET PO SCH (22:55)
[2017-06-14] MEDS: FAMOTIDINE 20 MG TABLET PO SCH (22:56)
[2017-06-14] MEDS: SIMVASTATIN 10 MG TABLET PO SCH (22:56)
[2017-06-14] MEDS: GABAPENTIN 300 MG CAPSULE PO SCH (22:56)
[2017-06-14] MEDS: CYCLOSPORINE 0.05% OPH EMULSIO 0.4 ML DROPERETTE OU SCH (22:57)
[2017-06-15] MEDS: NITROGLYCERIN 2% OINTMENT 1 GM PACKET TP SCH ×4 (00:52→18:22)
[2017-06-15 05:35] LABS: ABSOLUTE EOSINOPHILS # (AUTO) 0.1 10^3/uL (0.0-0.6); ABSOLUTE MONOCYTES (AUTO) 0.5 10^3/uL (0.1-1.4); ABSOLUTE NEUT (AUTO) 1.3 10^3/uL (1.7-8.2); EOSINOPHILS % (AUTO) 3.2 % (0-6); HEMATOCRIT 28.7 % (36.0-47.0); HEMOGLOBIN 9.3 g/dL (12.0-15.5); LYMPHOCYTES % (AUTO) 34.3 % (13-45); MEAN CORPUSCULAR HGB CONC 32.5 g/dL (32.0-36.0); MEAN CORPUSCULAR VOLUME 86 fl (80-97); MONOCYTES % (AUTO) 16.9 % (3-13); PLATELET COUNT 267 10^3/uL (150-450); RED BLOOD COUNT 3.34 10^6/uL (3.72-5.28); RED CELL DISTRIBUTION WIDTH 15.4 % (11.5-14.0); SEGMENTED NEUTROPHILS % (AUTO) 44.6 % (42-78); TOTAL CELLS COUNTED % (AUTO) 100 %
[2017-06-15] MEDS: LEVOTHYROXINE SODIUM 0.075 MG TABLET PO SCH (05:39)
[2017-06-15 05:45] LABS: WHITE BLOOD COUNT 2.9 10^3/uL (4.0-10.5)
[2017-06-15 06:01] LABS: ANION GAP 7 (5-19); BLOOD UREA NITROGEN 12 mg/dL (7-20); CALCIUM 8.5 mg/dL (8.4-10.2); CARBON DIOXIDE 29 mmol/L (22-30); CHLORIDE 100 mmol/L (98-107); GLUCOSE 78 mg/dL (75-110); SODIUM 135.5 mmol/L (137-145)
[2017-06-15 06:11] LABS: POTASSIUM 3.6 mmol/L (3.6-5.0)
[2017-06-15] MEDS: GABAPENTIN 300 MG CAPSULE PO SCH ×2 (09:22→21:28)
[2017-06-15] MEDS: DOCUSATE SODIUM 100 MG CAPSULE PO SCH (09:22)
[2017-06-15] MEDS: FAMOTIDINE 20 MG TABLET PO SCH ×2 (09:22→21:27)
[2017-06-15] MEDS: TAMSULOSIN HCL 0.4 MG CAP.SR.24H PO SCH (09:22)
[2017-06-15] MEDS: METOPROLOL TARTRATE 25 MG TABLET PO SCH ×2 (09:22→21:28)
[2017-06-15] MEDS: FUROSEMIDE INJ/PF 40 MG/4 ML SDV IV SCH (09:22)
[2017-06-15] MEDS: CYCLOSPORINE 0.05% OPH EMULSIO 0.4 ML DROPERETTE OU SCH ×2 (09:26→21:27)
[2017-06-15] MEDS ORDERED: DOCUSATE SODIUM 100 MG/10 ML UDC PO SCH (10:00)
--- NOTE | 2017-06-15 15:33 | RADIOLOGY REPORT (SQ) ---
EXAM DESCRIPTION: VENOUS BILATERAL LOWER COMPLETED DATE/TIME: 06/15/2017 2:56 pm REASON FOR STUDY: Bilateral leg swelling COMPARISON: 12/28/2011. TECHNIQUE: Dynamic and static collazo scale and color images acquired of both lower extremity venous sy stems. Selected spectral images acquired with additional compression and augmentation maneuvers. Imag es stored on PACS. LIMITATIONS: None. FINDINGS: RIGHT LEG COMMON FEMORAL AND FEMORAL: Normal phasicity, compression and augmentation. No visualized echogenic m aterial on collazo scale. No defects on color images. POPLITEAL: Normal compression and augmentation. No visualized echogenic material on collazo scale. No de fects on color images. CALF VESSELS: Normal compression and augmentation. No visualized echogenic material on collazo scale. No defects on color image. GSV AND SSV: Normal compression. No visualized echogenic material on collazo scale. No defects on color images. ANY DEEP VENOUS INSUFFICIENCY: No. ANY EVIDENCE OF POPLITEAL CYST: No. OTHER: No other significant finding. LEFT LEG COMMON FEMORAL AND FEMORAL: Normal phasicity, compression and augmentation. No visualized echogenic m aterial on collazo scale. No defects on color images. POPLITEAL: Normal compression and augmentation. No visualized echogenic material on collazo scale. No de fects on color images. CALF VESSELS: Normal compression and augmentation. No visualized echogenic material on collazo scale. No defects on color images. GSV AND SSV: Normal compression. No visualized echogenic material on collazo scale. No defects on color images. ANY DEEP VENOUS INSUFFICIENCY: No. ANY EVIDENCE POPLITEAL CYST: No. OTHER: No other significant finding. IMPRESSION: NO EVIDENCE DVT OR SVT IN EITHER LEG. TECHNICAL DOCUMENTATION: JOB ID: [id number]- All Rights Reserved Reading location - IP/workstation name: [email or web address]
--- NOTE | 2017-06-15 17:19 | PDOC PROGRESS REPORT ---
Subjective Progress Note for:: 06/15/17 Subjective:: Patient is feeling some better today. She is still having some shortness of breath, not normal for her. No phlegm production. No fevers or chills. Her energy level is pretty good though not normal for her. No chest pain. no constipation or diarrhea. Her appetite is good. No dysuria. No vomiting abdominal pain. Her leg swelling has improved. Reason For Visit: ACUTE DECOMPENSATED CHF,ATRIAL FIBRILLATION WITH rapid rate Physical Exam Vital Signs: Temp Pulse Resp BP Pulse Ox 98.1 F 85 18 122/68 96 06/15/17 12:28 06/15/17 16:00 06/15/17 16:00 06/15/17 12:28 06/15/17 16:00 Intake & Output 06/14/17 06/15/17 06/16/17 06:59 06:59 06:59 Intake Total 64 237 Output Total 1800 900 Balance -1736 -663 Weight 58.6 kg General appearance: PRESENT: no acute distress, cooperative, well-developed, well-nourished Head exam: PRESENT: atraumatic, normocephalic Eye exam: PRESENT: conjunctiva pink, EOMI. ABSENT: scleral icterus Ear exam: PRESENT: normal external ear exam. ABSENT: drainage Mouth exam: PRESENT: moist, tongue midline Respiratory exam: PRESENT: decreased breath sounds, rales, unlabored. ABSENT: accessory muscle use, prolonged expiratory phas, tachypnea, wheezes Cardiovascular exam: PRESENT: irregular rhythm. ABSENT: tachycardia Pulses: PRESENT: normal radial pulses GI/Abdominal exam: PRESENT: normal bowel sounds, soft. ABSENT: distended, guarding, tenderness Rectal exam: PRESENT: deferred Extremities exam: PRESENT: tenderness, +1 edema Musculoskeletal exam: PRESENT: ambulatory Neurological exam: PRESENT: alert, awake, oriented to person, oriented to place , oriented to situation, CN II-XII grossly intact Psychiatric exam: PRESENT: appropriate affect. ABSENT: anxious Skin exam: PRESENT: dry, erythema - Erythema in the distal legs where edema is present., intact, warm Results Laboratory Results: 06/15/17 04:57 06/15/17 04:57 06/15/17 06/15/17 06/15/17 04:57 04:57 04:57 WBC 2.9 L D RBC 3.34 L Hgb 9.3 L Hct 28.7 L MCV 86 MCH 28.0 MCHC 32.5 RDW 15.4 H Plt Count 267 Seg Neutrophils % 44.6 Lymphocytes % 34.3 Monocytes % 16.9 H Eosinophils % 3.2 Basophils % 1.0 Absolute Neutrophils 1.3 L Absolute Lymphocytes 1.0 Absolute Monocytes 0.5 Absolute Eosinophils 0.1 Absolute Basophils 0.0 Sodium 135.5 L Potassium 3.6 D Chloride 100 Carbon Dioxide 29 Anion Gap 7 BUN 12 Creatinine 0.77 Est GFR ( Amer) > 60 Est GFR (Non-Af Amer) > 60 Glucose 78 Calcium 8.5 TSH 5.01 H 06/15/17 04:57 Troponin I < 0.012 Impressions: Chest X-Ray 06/14/17 15:22 IMPRESSION: Moderate size bilateral pleural effusions as noted above. I cannot exclude some underlying atelectasis or infiltrate in the lung bases. Other findings as noted above Venous Doppler Study 06/15/17 00:00 IMPRESSION: NO EVIDENCE DVT OR SVT IN EITHER LEG. Assessment & Plan - Diagnosis (1) Atrial fibrillation with normal ventricular rate Is this a current diagnosis for this admission?: Yes Plan: Patient is now rate controlled on metoprolol 25 mg p.o. every 12 hours. Due to recent subdural hematoma we cannot anticoagulate her. She understands that she is at risk for stroke. (2) CHF (congestive heart failure) Qualifiers: Heart failure type: diastolic Heart failure chronicity: unspecified Qualified Code(s): I50.30 - Unspecified diastolic (congestive) heart failure Is this a current diagnosis for this admission?: Yes Plan: Still waiting for read on echocardiogram. We will continue to diuresis but will decrease Lasix from 40 mg IV twice daily to 40 mg IV daily. We will continue to monitor electrolytes. (3) Peripheral edema Is this a current diagnosis for this admission?: Yes Plan: Possibly related to heart failure. Improving with diuresis. DVT studies of the bilateral lower extremities today are negative. She does have some erythema with the edema but I do not think she has cellulitis. We will continue to monitor. (4) Pleural effusion Is this a current diagnosis for this admission?: Yes Plan: Likely secondary to congestive heart failure. We will continue to diuresis. Continue to monitor respiratory status. If patient's pleural effusion persists despite diuresis will need to expand workup of her pleural effusion. (5) Subdural hematoma Is this a current diagnosis for this admission?: Yes Plan: Cannot diuresis secondary to this. Patient is otherwise feeling well in this regard. - Time Time Spent with patient: 25-34 minutes Medications reviewed and adjusted accordingly: Yes - Inpatient Certification Based on my medical assessment, after consideration of the patient's comorbidities, presenting symptoms, or acuity I expect that the services needed warrant INPATIENT care.: Yes I certify that my determination is in accordance with my understanding of Medicare's requirements for reasonable and necessary INPATIENT services [42 CFR 412.3e].: Yes Medical Necessity: Significant Comorbidiites Make Outpatient Treatment Too Risky , Need Close Monitoring Due to Risk of Patient Decompensation, Risk of Complication if Not Cared For in Hospital
--- NOTE | 2017-06-15 19:45 | XCELERA REPORT ---
[address] [address] Transthoracic Echocardiogram Report Name: REMIGIO GOMEZ Age: 81 yrs Gender: Female : 1935 Patient Status: Inpatient Patient Location: [address] [place] [address] Study Date: 06/15/2017 01:47 PM Height: 60 in Weight: 130 lb BSA: 1.6 m2 Procedure: A complete two-dimensional transthoracic echocardiogram was performed (2D, M-mode, spectral and color flow Doppler). The study was technically adequate with some images being suboptimal in quality. Reason For Study: CHF Ordering Physician: LYRIC MORRISSEY Performed By: Katia Loyola Interpretation Summary The left ventricular ejection fraction is normal. There is mild concentric left ventricular hypertrophy. The left ventricle is grossly normal size. Doppler measurements suggest pseudonormalized left ventricular relaxation, which is associated with grade II/IV or mild to moderate diastolic dysfunction Regional wall motion abnormalities cannot be excluded due to limited visualization. The right ventricular systolic function is mildly reduced. The right ventricle is mild to moderately dilated. The right atrium is moderately dilated. There is a mild amount of mitral regurgitation There is no mitral valve stenosis. No aortic regurgitation is present. There is no aortic valve stenosis There is a severe amount of tricuspid regurgitation There is moderate to severe pulmonary hypertension by echo Right ventricular systolic pressure is estimated to be elevated at 50- 60mmHg. The aortic root is not well visualized but is probably normal size. The inferior vena cava appeared dilated and did not change with respiration (RAP > 20 mmHg) Minimal pericardial effusion. MMode/2D Measurements & Calculations RVDd: 3.1 cm LVIDd: 3.8 cm FS: 39.0 % Ao root diam: IVSd: 0.95 cm LVIDs: 2.3 cm EDV(Teich): 3.0 cm LVPWd: 0.86 cm 61.0 ml Ao root area: ESV(Teich): 18.2 ml 7.1 cm2 EF(Teich): LA dimension: 70.2 % 3.9 cm LVOT diam: 1.9 cm LA A2Cs: LA A4Cs: LA length: 5.9 cm LVOT area: 2.9 cm2 29.0 cm2 23.0 cm2 LA Vol Index (BP): LA Volume: 95.8 ml 61.6 ml/m2 Doppler Measurements & Calculations MV E max alejandra: MV P1/2t max alejandra: Ao V2 max: LV V1 max P.6 cm/sec 144.2 cm/sec 132.6 cm/sec 4.1 mmHg MV P1/2t: 48.8 msec Ao max PG: LV V1 max: MVA(P1/2t): 4.5 cm2 7.0 mmHg 101.0 cm/sec MV dec slope: JAVIER(V,D): 2.2 cm2 866.3 cm/sec2 PA V2 max: PI end-d alejandra: TR max alejandra: 67.6 cm/sec 167.4 cm/sec 317.3 cm/sec PA max PG: TR max P.8 mmHg 40.3 mmHg Left Ventricle The left ventricle is grossly normal size. There is mild concentric left ventricular hypertrophy. The left ventricular ejection fraction is normal. Doppler measurements suggest pseudonormalized left ventricular relaxation, which is associated with grade II/IV or mild to moderate diastolic dysfunction. Regional wall motion abnormalities cannot be excluded due to limited visualization. Right Ventricle The right ventricle is mild to moderately dilated. There is normal right ventricular wall thickness. The right ventricular systolic function is mildly reduced. Atria The right atrium is moderately dilated. The left atrium is mildly dilated. Interarterial septum not well visualized and not well dopplered. Cannot comment on ASD/PFO presence. Mitral Valve There is mild mitral leaflet calcification. There is moderate mitral annular calcification. There is no mitral valve stenosis. There is a mild amount of mitral regurgitation. Aortic Valve The aortic valve opens well. There is no aortic valve stenosis. No aortic regurgitation is present. Tricuspid Valve The tricuspid valve is not well visualized secondary to technical limitations. There is no tricuspid stenosis. There is a severe amount of tricuspid regurgitation. There is moderate to severe pulmonary hypertension by echo. Right ventricular systolic pressure is estimated to be elevated at 50-60mmHg. Pulmonic Valve The pulmonic valve is not well visualized. There is a mild amount of pulmonic regurgitation. Great Vessels The aortic root is not well visualized but is probably normal size. The inferior vena cava appeared dilated and did not change with respiration (RAP > 20 mmHg). Effusions Minimal pericardial effusion. : LYRIC MORRISSEY > Ramesh Barron
[2017-06-15] MEDS: SIMVASTATIN 10 MG TABLET PO SCH (21:27)
[2017-06-16] MEDS: NITROGLYCERIN 2% OINTMENT 1 GM PACKET TP SCH ×5 (00:40→23:59)
[2017-06-16] MEDS: LEVOTHYROXINE SODIUM 0.075 MG TABLET PO SCH (05:54)
[2017-06-16] MEDS ORDERED: FUROSEMIDE INJ/PF 20 MG/2 ML SDV IV SCH (10:00)
[2017-06-16] MEDS ORDERED: FUROSEMIDE INJ/PF 40 MG/4 ML SDV IV SCH (10:00)
[2017-06-16] MEDS: TAMSULOSIN HCL 0.4 MG CAP.SR.24H PO SCH (10:04)
[2017-06-16] MEDS: GABAPENTIN 300 MG CAPSULE PO SCH ×2 (10:04→21:55)
[2017-06-16] MEDS: CYCLOSPORINE 0.05% OPH EMULSIO 0.4 ML DROPERETTE OU SCH ×2 (10:05→21:54)
[2017-06-16] MEDS: FAMOTIDINE 20 MG TABLET PO SCH ×2 (10:05→21:54)
[2017-06-16] MEDS: METOPROLOL TARTRATE 25 MG TABLET PO SCH ×2 (10:05→21:54)
[2017-06-16] MEDS: DOCUSATE SODIUM 100 MG CAPSULE PO SCH (10:05)
[2017-06-16] MEDS ORDERED: ONDANSETRON HCL INJ/PF 4 MG/2 ML SDV IV PRN (17:42)
[2017-06-16] MEDS ORDERED: IPRATROPIUM/ALBUTEROL 0.5-2.5 MG/3 ML AMPUL NEB PRN (17:42)
[2017-06-16] MEDS ORDERED: OXYCODONE-ACETAMINOPHEN 5-325 MG TABLET PO PRN (17:42)
[2017-06-16] MEDS ORDERED: TEMAZEPAM 7.5 MG CAPSULE PO PRN (17:43)
--- NOTE | 2017-06-16 20:15 | PDOC PROGRESS REPORT ---
Subjective Progress Note for:: 06/16/17 Subjective:: Feeling better. Breathing improving, leg swelling is improving, no new complaints. Eating pretty well. Feels weak still but is able to walk with assistance. Reason For Visit: ACUTE DECOMPENSATED CHF,ATRIAL FIBRILLATION WITH A Physical Exam Vital Signs: Temp Pulse Resp BP Pulse Ox 98.1 F 93 22 H 122/55 L 100 06/16/17 16:04 06/16/17 19:00 06/16/17 16:04 06/16/17 16:04 06/16/17 16:04 Intake & Output 06/15/17 06/16/17 06/17/17 06:59 06:59 06:59 Intake Total 64 821 477 Output Total 1800 1800 1650 Balance -7576 -979 -1173 Weight 58.6 kg 57.4 kg General appearance: PRESENT: no acute distress, cooperative Head exam: PRESENT: atraumatic, normocephalic Eye exam: PRESENT: conjunctiva pink Mouth exam: PRESENT: moist Respiratory exam: PRESENT: decreased breath sounds, rales, unlabored. ABSENT: wheezes Cardiovascular exam: PRESENT: RRR. ABSENT: systolic murmur GI/Abdominal exam: PRESENT: soft. ABSENT: distended, tenderness Rectal exam: PRESENT: deferred Extremities exam: PRESENT: +2 edema. ABSENT: tenderness Skin exam: PRESENT: other - bilateral distal leg redness that is improving. Results Laboratory Results: 06/15/17 04:57 06/15/17 04:57 06/15/17 04:57 Troponin I < 0.012 Impressions: Chest X-Ray 06/14/17 15:22 IMPRESSION: Moderate size bilateral pleural effusions as noted above. I cannot exclude some underlying atelectasis or infiltrate in the lung bases. Other findings as noted above Venous Doppler Study 06/15/17 00:00 IMPRESSION: NO EVIDENCE DVT OR SVT IN EITHER LEG. Assessment & Plan - Diagnosis (1) Atrial fibrillation with normal ventricular rate Is this a current diagnosis for this admission?: Yes Plan: Rate controlled. She is not anticoagulated secondary to recent subdural hematoma. (2) CHF (congestive heart failure) Qualifiers: Heart failure type: diastolic Heart failure chronicity: unspecified Qualified Code(s): I50.30 - Unspecified diastolic (congestive) heart failure Is this a current diagnosis for this admission?: Yes Plan: Improving. Continue current medications including Lasix. Follow electrolytes. (3) Peripheral edema Is this a current diagnosis for this admission?: Yes Plan: Improving with Lasix. Continue Lasix. Follow electrolytes. (4) Pleural effusion Is this a current diagnosis for this admission?: Yes Plan: Respiratory status improving. Will need follow-up chest x-ray at some point, possibly before discharge. (5) Subdural hematoma Is this a current diagnosis for this admission?: Yes Plan: Making Line Worker for evidence of neurologic changes. Assistance with ambulation. Monitor for safety. - Time Time Spent with patient: 25-34 minutes - Inpatient Certification Based on my medical assessment, after consideration of the patient's comorbidities, presenting symptoms, or acuity I expect that the services needed warrant INPATIENT care.: Yes I certify that my determination is in accordance with my understanding of Medicare's requirements for reasonable and necessary INPATIENT services [42 CFR 412.3e].: Yes Medical Necessity: Significant Comorbidiites Make Outpatient Treatment Too Risky , Need Close Monitoring Due to Risk of Patient Decompensation, Risk of Complication if Not Cared For in Hospital
[2017-06-16 20:59] LABS: ANION GAP 9 (5-19); BLOOD UREA NITROGEN 23 mg/dL (7-20); CALCIUM 9.8 mg/dL (8.4-10.2); CARBON DIOXIDE 32 mmol/L (22-30); CHLORIDE 95 mmol/L (98-107); GLUCOSE 85 mg/dL (75-110); POTASSIUM 3.7 mmol/L (3.6-5.0)
[2017-06-16] MEDS: SIMVASTATIN 10 MG TABLET PO SCH (21:55)
[2017-06-17] MEDS: NITROGLYCERIN 2% OINTMENT 1 GM PACKET TP SCH ×4 (06:11→23:58)
[2017-06-17] MEDS: LEVOTHYROXINE SODIUM 0.075 MG TABLET PO SCH (06:11)
[2017-06-17 06:30] LABS: HEMATOCRIT 29.3 % (36.0-47.0); HEMOGLOBIN 9.6 g/dL (12.0-15.5); MEAN CORPUSCULAR HEMOGLOBIN 28.2 pg (27.0-33.4); MEAN CORPUSCULAR HGB CONC 32.9 g/dL (32.0-36.0); MEAN CORPUSCULAR VOLUME 86 fl (80-97); PLATELET COUNT 248 10^3/uL (150-450); RED BLOOD COUNT 3.42 10^6/uL (3.72-5.28); WHITE BLOOD COUNT 3.1 10^3/uL (4.0-10.5)
[2017-06-17 06:33] LABS: ANION GAP 7 (5-19); BLOOD UREA NITROGEN 20 mg/dL (7-20); CALCIUM 9.3 mg/dL (8.4-10.2); CARBON DIOXIDE 31 mmol/L (22-30); CHLORIDE 97 mmol/L (98-107); GLUCOSE 80 mg/dL (75-110); POTASSIUM 3.6 mmol/L (3.6-5.0); SODIUM 135.1 mmol/L (137-145)
--- NOTE | 2017-06-17 09:41 | RADIOLOGY REPORT (SQ) ---
EXAM DESCRIPTION: CHEST PA/LAT COMPLETED DATE/TIME: 06/17/2017 9:30 am REASON FOR STUDY: pleural effusion eval COMPARISON: 04/20/2017 EXAM PARAMETERS: NUMBER OF VIEWS: two views TECHNIQUE: Digital Frontal and Lateral radiographic views of the chest acquired. RADIATION DOSE: NA LIMITATIONS: none FINDINGS: LUNGS AND PLEURA: Increasing bilateral pleural effusions since the previous study. No pne umothorax. MEDIASTINUM AND HILAR STRUCTURES: No masses or contour abnormalities. HEART AND VASCULAR STRUCTURES: Heart normal size. No evidence for failure. BONES: Healing right rib fractures unchanged. HARDWARE: None in the chest. OTHER: No other significant finding. IMPRESSION: Increased bilateral pleural effusions since the previous study. TECHNICAL DOCUMENTATION: JOB ID: [id number] [employer]- All Rights Reserved Reading location - IP/workstation name: [email or web address]
[2017-06-17] MEDS ORDERED: FUROSEMIDE INJ/PF 40 MG/4 ML SDV IV SCH ×2 (10:00→22:00)
[2017-06-17] MEDS: METOPROLOL TARTRATE 25 MG TABLET PO SCH ×2 (10:29→21:33)
[2017-06-17] MEDS: GABAPENTIN 300 MG CAPSULE PO SCH ×2 (10:29→21:32)
[2017-06-17] MEDS: TAMSULOSIN HCL 0.4 MG CAP.SR.24H PO SCH (10:29)
[2017-06-17] MEDS: FAMOTIDINE 20 MG TABLET PO SCH ×2 (10:30→21:32)
[2017-06-17] MEDS: DOCUSATE SODIUM 100 MG CAPSULE PO SCH (10:30)
[2017-06-17] MEDS: CYCLOSPORINE 0.05% OPH EMULSIO 0.4 ML DROPERETTE OU SCH ×2 (10:30→21:32)
--- NOTE | 2017-06-17 15:31 | PDOC PROGRESS REPORT ---
Subjective Progress Note for:: 06/17/17 Subjective:: Patient's breathing is about the same. Her leg swelling has improved. She is short of breath with exertion. She is feeling weak. There is or chills. No sputum production. She and I discussed at length the possibility of the need for thoracentesis. She agrees to try twice daily Lasix with close monitoring first. Appetite fair. No constipation or diarrhea. No dysuria. Reason For Visit: ACUTE DECOMPENSATED CHF,ATRIAL FIBRILLATION WITH A Physical Exam Vital Signs: Temp Pulse Resp BP Pulse Ox 97.6 F 78 18 128/64 H 99 06/17/17 07:16 06/17/17 14:01 06/17/17 14:01 06/17/17 07:16 06/17/17 14:01 Intake & Output 06/16/17 06/17/17 06/18/17 06:59 06:59 06:59 Intake Total 821 595 237 Output Total 1800 1750 900 Balance -979 -8265 -663 Weight 57.4 kg 56.6 kg General appearance: PRESENT: no acute distress, cooperative Head exam: PRESENT: atraumatic, normocephalic Eye exam: PRESENT: conjunctiva pink, EOMI Mouth exam: PRESENT: moist, neck supple Neck exam: ABSENT: lymphadenopathy Respiratory exam: PRESENT: decreased breath sounds, rales, unlabored. ABSENT: rhonchi, tachypnea, wheezes Cardiovascular exam: PRESENT: irregular rhythm. ABSENT: systolic murmur, tachycardia Pulses: PRESENT: normal radial pulses GI/Abdominal exam: PRESENT: normal bowel sounds, soft. ABSENT: distended, guarding, tenderness Rectal exam: PRESENT: deferred Extremities exam: PRESENT: +1 edema Neurological exam: PRESENT: alert, awake, oriented to person, oriented to place , oriented to situation, CN II-XII grossly intact. ABSENT: aphasic Psychiatric exam: PRESENT: appropriate affect. ABSENT: anxious Skin exam: PRESENT: dry, warm, other - Erythema over the bilateral distentions is much improved with diuresis. I do not think this is cellulitis. Results Laboratory Results: 06/17/17 05:14 06/17/17 05:14 06/16/17 06/17/17 06/17/17 20:30 05:14 05:14 WBC 3.1 L RBC 3.42 L Hgb 9.6 L Hct 29.3 L MCV 86 MCH 28.2 MCHC 32.9 RDW 16.0 H Plt Count 248 Sodium 136.0 L 135.1 L Potassium 3.7 3.6 Chloride 95 L 97 L Carbon Dioxide 32 H 31 H Anion Gap 9 7 BUN 23 H 20 Creatinine 0.86 0.81 Est GFR ( Amer) > 60 > 60 Est GFR (Non-Af Amer) > 60 > 60 Glucose 85 80 Calcium 9.8 9.3 06/15/17 04:57 Troponin I < 0.012 Impressions: Venous Doppler Study 06/15/17 00:00 IMPRESSION: NO EVIDENCE DVT OR SVT IN EITHER LEG. Chest X-Ray 06/17/17 08:10 IMPRESSION: Increased bilateral pleural effusions since the previous study. Assessment & Plan - Diagnosis (1) Atrial fibrillation with normal ventricular rate Is this a current diagnosis for this admission?: Yes Plan: Rate is well controlled. No medication changes to be made. Patient cannot be anticoagulated secondary to recent fall with subdural hematoma and need for surgery. (2) CHF (congestive heart failure) Qualifiers: Heart failure type: diastolic Heart failure chronicity: unspecified Qualified Code(s): I50.30 - Unspecified diastolic (congestive) heart failure Is this a current diagnosis for this admission?: Yes Plan: Patient has significant bilateral pleural effusions are not much improved with the Lasix. Her lower extremity edema has however improved. Her cardiogram shows diastolic dysfunction. Wonder if there is another etiology of her bilateral pleural effusions. Today I have increased her Lasix to 40 mg IV twice daily. We will monitor electrolytes closely. I discussed with patient the possibility of thoracentesis and that makes her little bit anxious she is not entirely opposed. She knows she will be with us here in the hospital for at least a few more days. Repeat chest x-ray in a day or so. She will probably need acute rehab secondary to worsening weakness. (3) Peripheral edema Is this a current diagnosis for this admission?: Yes Plan: Significantly improved. And above for Lasix. She has erythema over the distal legs with the edema but I do not think this is cellulitis. (4) Pleural effusion Is this a current diagnosis for this admission?: Yes Plan: Please see congestive heart failure plan. (5) Subdural hematoma Is this a current diagnosis for this admission?: Yes Plan: Patient is stable from this perspective. For this reason she cannot be anticoagulated. Continue to monitor closely for falls. - Time Time Spent with patient: 25-34 minutes Medications reviewed and adjusted accordingly: Yes Anticipated discharge: Acute Rehab - Inpatient Certification Medical Necessity: Need Close Monitoring Due to Risk of Patient Decompensation, Risk of Complication if Not Cared For in Hospital
[2017-06-17] MEDS ORDERED: FUROSEMIDE INJ/PF 20 MG/2 ML SDV IV SCH (17:00)
[2017-06-17] MEDS: FUROSEMIDE INJ/PF 40 MG/4 ML SDV IV SCH (17:40)
[2017-06-17] MEDS: SIMVASTATIN 10 MG TABLET PO SCH (21:32)
[2017-06-17] MEDS: ACETAMINOPHEN 325 MG TABLET PO PRN (23:53)
[2017-06-18] MEDS: NITROGLYCERIN 2% OINTMENT 1 GM PACKET TP SCH (05:19)
[2017-06-18] MEDS: LEVOTHYROXINE SODIUM 0.075 MG TABLET PO SCH (05:20)
[2017-06-18 06:39] LABS: HEMATOCRIT 31.9 % (36.0-47.0); HEMOGLOBIN 10.4 g/dL (12.0-15.5); MEAN CORPUSCULAR HEMOGLOBIN 27.8 pg (27.0-33.4); MEAN CORPUSCULAR HGB CONC 32.6 g/dL (32.0-36.0); MEAN CORPUSCULAR VOLUME 85 fl (80-97); PLATELET COUNT 286 10^3/uL (150-450); RED BLOOD COUNT 3.75 10^6/uL (3.72-5.28); RED CELL DISTRIBUTION WIDTH 15.9 % (11.5-14.0); WHITE BLOOD COUNT 3.7 10^3/uL (4.0-10.5)
[2017-06-18 06:53] LABS: ANION GAP 7 (5-19); BLOOD UREA NITROGEN 19 mg/dL (7-20); CALCIUM 8.8 mg/dL (8.4-10.2); CARBON DIOXIDE 33 mmol/L (22-30); CHLORIDE 96 mmol/L (98-107); GLUCOSE 84 mg/dL (75-110); POTASSIUM 3.5 mmol/L (3.6-5.0); SODIUM 135.8 mmol/L (137-145)
[2017-06-18] MEDS ORDERED: POTASSIUM CHLORIDE 10 MEQ TABLET.SA PO ONE (08:54)
--- NOTE | 2017-06-18 09:21 | PDOC PROGRESS REPORT ---
Subjective Progress Note for:: 06/18/17 Subjective:: Feeling pretty good today, eating well, slept well, no new chest or abd pain, urinating fine, no constipation and had BM today. She toldme her daughter in [place] said that during last hospitalization for SDH she had fluids removed from her lungs so she is less nervous about that possibility. We also discussed that she has afib and cannot be anticoagulated due to recent SDH. Reason For Visit: ACUTE DECOMPENSATED CHF,ATRIAL FIBRILLATION WITH A Physical Exam Vital Signs: Temp Pulse Resp BP Pulse Ox 98.8 F 90 16 106/55 L 97 06/18/17 08:23 06/18/17 08:23 06/18/17 08:23 06/18/17 08:23 06/18/17 08:23 Intake & Output 06/17/17 06/18/17 06/19/17 06:59 06:59 06:59 Intake Total 595 1494 Output Total 1750 3500 Balance -1154 Weight 56.6 kg 54.2 kg General appearance: PRESENT: no acute distress, cooperative, thin Head exam: PRESENT: normocephalic, other - surgical scarring seen from recent SHD surgery Eye exam: PRESENT: conjunctiva pink, EOMI Mouth exam: PRESENT: moist, neck supple Respiratory exam: PRESENT: decreased breath sounds, rales, unlabored. ABSENT: rhonchi, tachypnea, wheezes Cardiovascular exam: PRESENT: irregular rhythm. ABSENT: systolic murmur, tachycardia Pulses: PRESENT: normal radial pulses GI/Abdominal exam: PRESENT: normal bowel sounds, soft. ABSENT: distended, tenderness Rectal exam: PRESENT: deferred Extremities exam: PRESENT: +1 edema. ABSENT: tenderness Musculoskeletal exam: PRESENT: ambulatory Neurological exam: PRESENT: alert, awake, oriented to person, oriented to situation, CN II-XII grossly intact Psychiatric exam: PRESENT: appropriate affect. ABSENT: anxious Skin exam: PRESENT: dry, warm, other - bilat distal legs with persistent erythema imrpoving daily Results Laboratory Results: 06/18/17 05:51 06/18/17 05:51 06/18/17 06/18/17 05:51 05:51 WBC 3.7 L RBC 3.75 Hgb 10.4 L Hct 31.9 L MCV 85 MCH 27.8 MCHC 32.6 RDW 15.9 H Plt Count 286 Sodium 135.8 L Potassium 3.5 L Chloride 96 L Carbon Dioxide 33 H Anion Gap 7 BUN 19 Creatinine 0.90 Est GFR ( Amer) > 60 Est GFR (Non-Af Amer) > 60 Glucose 84 Calcium 8.8 06/15/17 04:57 Troponin I < 0.012 Impressions: Venous Doppler Study 06/15/17 00:00 IMPRESSION: NO EVIDENCE DVT OR SVT IN EITHER LEG. Chest X-Ray 06/17/17 08:10 IMPRESSION: Increased bilateral pleural effusions since the previous study. Assessment & Plan - Diagnosis (1) Atrial fibrillation with normal ventricular rate Is this a current diagnosis for this admission?: Yes Plan: Cont rate control and no anticoagulation due to recent SDH, pt and understand why she is not anticoagulated. (2) CHF (congestive heart failure) Qualifiers: Heart failure type: diastolic Heart failure chronicity: unspecified Qualified Code(s): I50.30 - Unspecified diastolic (congestive) heart failure Is this a current diagnosis for this admission?: Yes Plan: With exacerbation. Cont BID lasix, repeat CXR tomorrow, if pleural effusions still persist thoracentesis would be appropriate. Maintain good BP control. (3) Peripheral edema Is this a current diagnosis for this admission?: Yes Plan: improving with lasix, monitor skin for need for antibiotics (4) Pleural effusion Is this a current diagnosis for this admission?: Yes Plan: see CHF plan above. If pt need thoracentesis it would be prudent to perform full fluid eval as this would be her second thoracentesis in several months. (5) Subdural hematoma Is this a current diagnosis for this admission?: Yes Plan: Due to fall at home. encourage pt to call for assistance with standing to prevent falls, fall precautions ordered. - Time Time Spent with patient: 15-24 minutes Medications reviewed and adjusted accordingly: Yes Anticipated discharge: Home with Homehealth - Inpatient Certification Medical Necessity: Significant Comorbidiites Make Outpatient Treatment Too Risky , Need Close Monitoring Due to Risk of Patient Decompensation, Risk of Complication if Not Cared For in Hospital Post Hospital Care: Other - Will need at least home PT if not Skilled placement
[2017-06-18] MEDS: TAMSULOSIN HCL 0.4 MG CAP.SR.24H PO SCH (09:41)
[2017-06-18] MEDS: FUROSEMIDE INJ/PF 40 MG/4 ML SDV IV SCH ×2 (09:41→18:17)
[2017-06-18] MEDS: GABAPENTIN 300 MG CAPSULE PO SCH ×2 (09:41→21:49)
[2017-06-18] MEDS: METOPROLOL TARTRATE 25 MG TABLET PO SCH ×2 (09:41→21:49)
[2017-06-18] MEDS: DOCUSATE SODIUM 100 MG CAPSULE PO SCH (09:41)
[2017-06-18] MEDS: CYCLOSPORINE 0.05% OPH EMULSIO 0.4 ML DROPERETTE OU SCH ×2 (09:41→21:49)
[2017-06-18] MEDS: FAMOTIDINE 20 MG TABLET PO SCH ×2 (09:41→21:49)
[2017-06-18] MEDS ORDERED: MAG HYDROX/AL HYDROX/SIMETH SUSP 30 ML UDCUP PO PRN (14:39)
[2017-06-18] MEDS: SIMVASTATIN 10 MG TABLET PO SCH (21:49)
--- NOTE | 2017-06-18 21:50 | EKG REPORT ---
SEVERITY:- ABNORMAL ECG - ATRIAL FIBRILLATION, V-RATE 70-114 BORDERLINE LEFT AXIS DEVIATION LOW VOLTAGE IN FRONTAL LEADS : Confirmed by: Ramesh Barron 18-Jun-2017 21:49:23
[2017-06-18] MEDS: ACETAMINOPHEN 325 MG TABLET PO PRN (23:18)
[2017-06-19] MEDS: LEVOTHYROXINE SODIUM 0.075 MG TABLET PO SCH (05:47)
--- NOTE | 2017-06-19 08:52 | RADIOLOGY REPORT (SQ) ---
EXAM DESCRIPTION: CHEST PA/LAT COMPLETED DATE/TIME: 06/19/2017 7:45 am REASON FOR STUDY: pleural effusion eval COMPARISON: None. EXAM PARAMETERS: NUMBER OF VIEWS: two views TECHNIQUE: Digital Frontal and Lateral radiographic views of the chest acquired. RADIATION DOSE: NA LIMITATIONS: none FINDINGS: LUNGS AND PLEURA: Abnormal density in both lung bases primarily related to moderate-sized bilateral pleural effusions. Operative prior study there has been slight worsening. Underlying atel ectasis is likely present. Component of pneumonia cannot be excluded. MEDIASTINUM AND HILAR STRUCTURES: No masses or contour abnormalities. HEART AND VASCULAR STRUCTURES: Mild cardiomegaly. Mild vascular congestion which appears slightly wo rse than on the prior study. BONES: No acute findings. HARDWARE: None in the chest. OTHER: No other significant finding. IMPRESSION: Slight worsening in the appearance of the chest with findings most consistent with conge stive failure with moderate-sized bilateral pleural effusion. Underlying pneumonia cannot be exclude d. TECHNICAL DOCUMENTATION: JOB ID: [id number] [employer]- All Rights Reserved Reading location - IP/workstation name: [email or web address]
[2017-06-19] MEDS: DOCUSATE SODIUM 100 MG CAPSULE PO SCH (09:17)
[2017-06-19] MEDS: FUROSEMIDE INJ/PF 40 MG/4 ML SDV IV SCH ×2 (09:17→17:44)
[2017-06-19] MEDS: GABAPENTIN 300 MG CAPSULE PO SCH ×2 (09:17→21:08)
[2017-06-19] MEDS: METOPROLOL TARTRATE 25 MG TABLET PO SCH ×2 (09:17→21:08)
[2017-06-19] MEDS: FAMOTIDINE 20 MG TABLET PO SCH ×2 (09:18→21:08)
[2017-06-19] MEDS: TAMSULOSIN HCL 0.4 MG CAP.SR.24H PO SCH (09:18)
[2017-06-19] MEDS: CYCLOSPORINE 0.05% OPH EMULSIO 0.4 ML DROPERETTE OU SCH ×2 (09:22→21:08)
[2017-06-19] MEDS: SIMVASTATIN 10 MG TABLET PO SCH (21:08)
[2017-06-19] MEDS: ACETAMINOPHEN 325 MG TABLET PO PRN (21:13)
[2017-06-20 05:31] LABS: ABSOLUTE EOSINOPHILS # (AUTO) 0.1 10^3/uL (0.0-0.6); ABSOLUTE LYMPHOCYTES (AUTO) 1.1 10^3/uL (0.5-4.7); ABSOLUTE MONOCYTES (AUTO) 0.4 10^3/uL (0.1-1.4); ABSOLUTE NEUT (AUTO) 1.2 10^3/uL (1.7-8.2); BASOPHILS % (AUTO) 1.6 % (0-2); EOSINOPHILS % (AUTO) 2.4 % (0-6); HEMATOCRIT 30.3 % (36.0-47.0); HEMOGLOBIN 9.8 g/dL (12.0-15.5); LYMPHOCYTES % (AUTO) 38.9 % (13-45); MEAN CORPUSCULAR HEMOGLOBIN 27.5 pg (27.0-33.4); MEAN CORPUSCULAR HGB CONC 32.5 g/dL (32.0-36.0); MEAN CORPUSCULAR VOLUME 85 fl (80-97); MONOCYTES % (AUTO) 14.1 % (3-13); PLATELET COUNT 250 10^3/uL (150-450); RED BLOOD COUNT 3.58 10^6/uL (3.72-5.28); RED CELL DISTRIBUTION WIDTH 16.1 % (11.5-14.0); TOTAL CELLS COUNTED % (AUTO) 100 %; WHITE BLOOD COUNT 2.9 10^3/uL (4.0-10.5)
[2017-06-20] MEDS: LEVOTHYROXINE SODIUM 0.075 MG TABLET PO SCH (05:41)
[2017-06-20 05:47] LABS: ANION GAP 8 (5-19); BLOOD UREA NITROGEN 27 mg/dL (7-20); CALCIUM 9.1 mg/dL (8.4-10.2); CARBON DIOXIDE 29 mmol/L (22-30); CHLORIDE 99 mmol/L (98-107); GLUCOSE 82 mg/dL (75-110); POTASSIUM 3.6 mmol/L (3.6-5.0); SODIUM 136.1 mmol/L (137-145)
[2017-06-20] MEDS ORDERED: FUROSEMIDE 20 MG TABLET PO SCH (08:00)
[2017-06-20] MEDS: TAMSULOSIN HCL 0.4 MG CAP.SR.24H PO SCH (09:25)
[2017-06-20] MEDS: DOCUSATE SODIUM 100 MG CAPSULE PO SCH (09:25)
[2017-06-20] MEDS: FAMOTIDINE 20 MG TABLET PO SCH ×2 (09:25→22:26)
[2017-06-20] MEDS: CYCLOSPORINE 0.05% OPH EMULSIO 0.4 ML DROPERETTE OU SCH ×2 (09:25→22:26)
[2017-06-20] MEDS: GABAPENTIN 300 MG CAPSULE PO SCH ×2 (09:26→22:26)
[2017-06-20 09:35] LABS: INTERNATIONAL RATION (INR) 0.92; PROTHROMBIN TIME 13.1 SEC (11.4-15.4)
[2017-06-20 09:36] LABS: PARTIAL THROMBOPLASTIN TIME 28.6 SEC (23.5-35.8)
[2017-06-20 09:51] LABS: TOTAL PROTEIN 6.5 g/dL (6.3-8.2)
[2017-06-20] MEDS ORDERED: METOLAZONE 2.5 MG TABLET PO SCH (10:00)
[2017-06-20] MEDS ORDERED: LIDOCAINE 1% INJ-PF (10 MG/ML) 30 ML SDV ONE (13:28)
--- NOTE | 2017-06-20 14:18 | RADIOLOGY REPORT (SQ) ---
EXAM DESCRIPTION: CHEST SINGLE VIEW COMPLETED DATE/TIME: 06/20/2017 2:07 pm REASON FOR STUDY: S/P LEFT THORACENTESIS COMPARISON: 06/19/2017. EXAM PARAMETERS: NUMBER OF VIEWS: One view. TECHNIQUE: Single frontal radiographic view of the chest acquired. RADIATION DOSE: NA LIMITATIONS: None. FINDINGS: LUNGS AND PLEURA: Bilateral pleural effusions. No pneumothorax following thoracentesis. MEDIASTINUM AND HILAR STRUCTURES: No masses. Contour normal. HEART AND VASCULAR STRUCTURES: Heart normal in size. Normal vasculature. BONES: No acute findings. Old rib fractures. HARDWARE: None in the chest. OTHER: No other significant finding. IMPRESSION: BILATERAL PLEURAL EFFUSIONS. NO PNEUMOTHORAX FOLLOWING THORACENTESIS. TECHNICAL DOCUMENTATION: JOB ID: [id number] [employer]- All Rights Reserved Reading location - IP/workstation name: [email or web address]
--- NOTE | 2017-06-20 14:32 | RADIOLOGY REPORT (SQ) ---
EXAM DESCRIPTION: U/S THORACENTESIS WITH IMAGING COMPLETED DATE/TIME: 06/20/2017 2:01 pm REASON FOR STUDY: bilateral pleural effusion COMPARISON: None. LIMITATIONS: None. PROCEDURE: Procedure, risks, benefit, and alternative explained to patient who then gave written con sent. The posterior left chest wall was marked using ultrasound guidance. A time-out was called for correct marking verification. Chest prepped and draped using sterile technique. Local anesthesia ac hieved using 10 ml of 1% lidocaine injection. A 6fr Safe-T- Centesis set was introduced into the lef t pleural space. Fluid was aspirated. The catheter was removed and the entry site was covered with sterile bandage. No immediate complications noted. Images acquired during the procedure were stored on PACS. FINDINGS: ENTRY SITE: Posterior left chest. FLUID VOLUME: 560 mL. FLUID ANALYSIS: Clear straw-colored. OTHER: Fluid sent to the lab for testing. IMPRESSION: SUCCESSFUL THORACENTESIS USING ULTRASOUND GUIDANCE. COMMENT: Patient medication list reviewed: Yes- Quality ID# [id number]:Eligible professional attests to doc umenting in the medical record they obtained, updated, or reviewed the patient's current medications. Quality ID #[id number]: Final reports for procedures using fluoroscopy that document radiation exposure zee patricia, or exposure time and number of fluorographic images (if radiation exposure indices are not avail able) TECHNICAL DOCUMENTATION: JOB ID: [id number] [employer]- All Rights Reserved Reading location - IP/workstation name: [email or web address]
[2017-06-20 15:13] LABS: FLUID TYPE PLEURAL
[2017-06-20 15:14] LABS: FLUID APPEARANCE SLIGHTLY HAZY; FLUID COLOR LIGHT YELLOW; FLUID VISCOSITY LIQUID
--- NOTE | 2017-06-20 16:12 | RADIOLOGY REPORT (SQ) ---
EXAM DESCRIPTION: CHEST SINGLE VIEW COMPLETED DATE/TIME: 06/20/2017 4:03 pm REASON FOR STUDY: 2 HOURS S/P LEFT THORACENTESIS COMPARISON: 06/20/2017 at 1403 hours. EXAM PARAMETERS: NUMBER OF VIEWS: One view. TECHNIQUE: Single frontal radiographic view of the chest acquired. RADIATION DOSE: NA LIMITATIONS: None. FINDINGS: LUNGS AND PLEURA: Bilateral pleural effusions. No pneumothorax. MEDIASTINUM AND HILAR STRUCTURES: No masses. Contour normal. HEART AND VASCULAR STRUCTURES: Heart normal in size. Normal vasculature. BONES: No acute findings. HARDWARE: None in the chest. OTHER: No other significant finding. IMPRESSION: BILATERAL PLEURAL EFFUSIONS. NO PNEUMOTHORAX 2 HOURS AFTER THORACENTESIS. TECHNICAL DOCUMENTATION: JOB ID: [id number] [employer]- All Rights Reserved Reading location - IP/workstation name: [email or web address]
[2017-06-20] MEDS: SIMVASTATIN 10 MG TABLET PO SCH (22:26)
[2017-06-21 09:25] LABS: INTERNATIONAL RATION (INR) 0.94; PROTHROMBIN TIME 13.3 SEC (11.4-15.4)
[2017-06-21 09:30] LABS: TOTAL PROTEIN 5.8 g/dL (6.3-8.2)
[2017-06-21] MEDS: TAMSULOSIN HCL 0.4 MG CAP.SR.24H PO SCH (10:20)
[2017-06-21] MEDS: FAMOTIDINE 20 MG TABLET PO SCH ×2 (10:20→22:59)
[2017-06-21] MEDS: DOCUSATE SODIUM 100 MG CAPSULE PO SCH (10:20)
[2017-06-21] MEDS: GABAPENTIN 300 MG CAPSULE PO SCH ×2 (10:20→22:58)
[2017-06-21] MEDS: LEVOTHYROXINE SODIUM 0.075 MG TABLET PO SCH (10:26)
[2017-06-21] MEDS: CYCLOSPORINE 0.05% OPH EMULSIO 0.4 ML DROPERETTE OU SCH ×2 (10:30→22:58)
[2017-06-21] MEDS ORDERED: LIDOCAINE 1% INJ-PF (10 MG/ML) 30 ML SDV ONE (14:10)
--- NOTE | 2017-06-21 16:08 | RADIOLOGY REPORT (SQ) ---
EXAM DESCRIPTION: CHEST SINGLE VIEW COMPLETED DATE/TIME: 06/21/2017 3:08 pm REASON FOR STUDY: S/P RT THORACENTESIS COMPARISON: 06/20/2017. EXAM PARAMETERS: NUMBER OF VIEWS: One view. TECHNIQUE: Single frontal radiographic view of the chest acquired. RADIATION DOSE: NA LIMITATIONS: None. FINDINGS: LUNGS AND PLEURA: Decrease in the right pleural effusion following thoracentesis. No pneu mothorax. Left basilar density and left pleural effusion unchanged. MEDIASTINUM AND HILAR STRUCTURES: No masses. Contour normal. HEART AND VASCULAR STRUCTURES: Heart normal in size. Normal vasculature. BONES: No acute findings. Old rib fractures. HARDWARE: None in the chest. OTHER: No other significant finding. IMPRESSION: NO PNEUMOTHORAX FOLLOWING THORACENTESIS. DECREASE IN THE RIGHT PLEURAL EFFUSION. OTHER KEENAN NO CHANGE. TECHNICAL DOCUMENTATION: JOB ID: [id number] [employer]- All Rights Reserved Reading location - IP/workstation name: [email or web address]
--- NOTE | 2017-06-21 16:12 | RADIOLOGY REPORT (SQ) ---
EXAM DESCRIPTION: U/S THORACENTESIS WITH IMAGING COMPLETED DATE/TIME: 06/21/2017 3:11 pm REASON FOR STUDY: right pleural effusions COMPARISON: None. LIMITATIONS: None. PROCEDURE: Procedure, risks, benefit, and alternative explained to patient who then gave written con sent. The posterior right chest wall was marked using ultrasound guidance. A time-out was called fo r correct marking verification. Chest prepped and draped using sterile technique. Local anesthesia a chieved using 10 ml of 1% lidocaine injection. A 6fr Safe-T- Centesis set was introduced into the po sterior right pleural space. Fluid was aspirated. The catheter was removed and the entry site was c overed with sterile bandage. No immediate complications noted. Images acquired during the procedure were stored on PACS. FINDINGS: ENTRY SITE: Posterior right chest. FLUID VOLUME: 475 mL. FLUID ANALYSIS: Clear straw-colored. OTHER: Fluid sent to the lab for testing. IMPRESSION: SUCCESSFUL THORACENTESIS USING ULTRASOUND GUIDANCE. COMMENT: Patient medication list reviewed: Yes- Quality ID# [id number]:Eligible professional attests to doc umenting in the medical record they obtained, updated, or reviewed the patient's current medications. Quality ID #[id number]: Final reports for procedures using fluoroscopy that document radiation exposure zee patricia, or exposure time and number of fluorographic images (if radiation exposure indices are not avail able) TECHNICAL DOCUMENTATION: JOB ID: [id number] [employer]- All Rights Reserved Reading location - IP/workstation name: [email or web address]
[2017-06-21 16:18] LABS: FLUID APPEARANCE CLEAR; FLUID COLOR YELLOW; FLUID SOURCE LUNG; FLUID TYPE PLEURAL; FLUID VISCOSITY LIQUID
--- NOTE | 2017-06-21 17:21 | RADIOLOGY REPORT (SQ) ---
EXAM DESCRIPTION: CHEST SINGLE VIEW COMPLETED DATE/TIME: 06/21/2017 5:09 pm REASON FOR STUDY: 2 HOURS S/P RT THORACENTESIS COMPARISON: 06/21/2017 EXAM PARAMETERS: NUMBER OF VIEWS: One view. TECHNIQUE: Single frontal radiographic view of the chest acquired. RADIATION DOSE: NA LIMITATIONS: None. FINDINGS: LUNGS AND PLEURA: There is limited opacification in the right lung base. There is the mayo earance of a small left pleural effusion. Portions of the left hemidiaphragm are obscured. There is no pneumothorax. MEDIASTINUM AND HILAR STRUCTURES: No masses. Contour normal. HEART AND VASCULAR STRUCTURES: Cardiac silhouette is enlarged. There is no failure. BONES: No acute findings. HARDWARE: None in the chest. OTHER: No other significant finding. IMPRESSION: There appears to be mild subsegmental atelectasis in the lung bases. There is no pneumo thorax. Cardiomegaly is present with no tuan failure. TECHNICAL DOCUMENTATION: JOB ID: [id number] [employer]- All Rights Reserved Reading location - IP/workstation name: [email or web address]
[2017-06-21] MEDS ORDERED: METOPROLOL TARTRATE 25 MG TABLET PO SCH (22:00)
[2017-06-21] MEDS: SIMVASTATIN 10 MG TABLET PO SCH (22:59)
[2017-06-21] MEDS: ACETAMINOPHEN 325 MG TABLET PO PRN (23:16)
[2017-06-21] MEDS ORDERED: CEFAZOLIN 1 GM/D5W RTU 2 GM/100 ML RTUPB IV ONE (23:41)
[2017-06-22] MEDS ORDERED: CEFAZOLIN 2 GM/D5W RTU 2 GM/50 ML RTUPB IV SCH
[2017-06-22] MEDS: LEVOTHYROXINE SODIUM 0.075 MG TABLET PO SCH (06:50)
[2017-06-22] MEDS ORDERED: CEFAZOLIN SODIUM 2 GM in NORMAL SALINE 100 ML IV SCH (09:00)
[2017-06-22] MEDS: DOCUSATE SODIUM 100 MG CAPSULE PO SCH (09:44)
[2017-06-22] MEDS: GABAPENTIN 300 MG CAPSULE PO SCH (09:45)
[2017-06-22] MEDS: FAMOTIDINE 20 MG TABLET PO SCH (09:45)
[2017-06-22] MEDS: CYCLOSPORINE 0.05% OPH EMULSIO 0.4 ML DROPERETTE OU SCH (09:46)
[2017-06-22] MEDS: TAMSULOSIN HCL 0.4 MG CAP.SR.24H PO SCH (09:46)
[2017-06-22] MEDS ORDERED: METOPROLOL TARTRATE 25 MG TABLET PO SCH (10:00)
[2017-06-22] MEDS ORDERED: FUROSEMIDE 20 MG TABLET PO SCH (10:00)
[2017-06-22 13:27] VITALS: BP 103/67
--- NOTE | 2017-06-22 21:30 | PDOC PROGRESS REPORT ---
Subjective Progress Note for:: 06/19/17 Subjective:: Patient states she is feeling quite well. Patient like for me to discuss having fluid drawn off her lung with her daughter. Patient had her daughter call me. Discussed with her that we would have one lung tapped at a time. Reason For Visit: ACUTE DECOMPENSATED CHF,ATRIAL FIBRILLATION WITH A Physical Exam Vital Signs: Temp Pulse Resp BP Pulse Ox 97.6 F 91 20 109/55 L 98 06/19/17 15:20 06/19/17 15:20 06/19/17 15:20 06/19/17 15:20 06/19/17 15:20 Intake & Output 06/18/17 06/19/17 06/20/17 06:59 06:59 06:59 Intake Total 1494 1117 343 Output Total 3500 800 200 Balance -2005 317 143 Weight 54.2 kg 54.3 kg General appearance: PRESENT: no acute distress, thin, other Head exam: PRESENT: other - Bitemporal wasting Eye exam: PRESENT: EOMI. ABSENT: scleral icterus Ear exam: PRESENT: normal external ear exam Mouth exam: PRESENT: moist Neck exam: ABSENT: carotid bruit, JVD, lymphadenopathy, thyromegaly Respiratory exam: PRESENT: clear to auscultation ruthann. ABSENT: rales, rhonchi, wheezes Cardiovascular exam: PRESENT: RRR. ABSENT: diastolic murmur, rubs, systolic murmur Pulses: PRESENT: normal dorsalis pedis pul Vascular exam: PRESENT: normal capillary refill GI/Abdominal exam: PRESENT: normal bowel sounds, soft. ABSENT: distended, guarding, mass, organolmegaly, rebound, tenderness Rectal exam: PRESENT: deferred Extremities exam: PRESENT: full ROM, +2 edema. ABSENT: calf tenderness, clubbing, pedal edema Neurological exam: PRESENT: alert, awake, oriented to person, oriented to place , oriented to time, oriented to situation, CN II-XII grossly intact, other - Hearing aids in place. ABSENT: motor sensory deficit Psychiatric exam: PRESENT: appropriate affect, normal mood. ABSENT: homicidal ideation, suicidal ideation Skin exam: PRESENT: dry, intact, warm, other - Erythema of bilateral lower extremities. ABSENT: cyanosis, rash Results Laboratory Results: 06/18/17 05:51 06/18/17 05:51 06/19/17 05:15 Magnesium 1.7 06/15/17 04:57 Troponin I < 0.012 Impressions: Venous Doppler Study 06/15/17 00:00 IMPRESSION: NO EVIDENCE DVT OR SVT IN EITHER LEG. Chest X-Ray 06/19/17 09:15 IMPRESSION: Slight worsening in the appearance of the chest with findings most consistent with congestive failure with moderate-sized bilateral pleural effusion. Underlying pneumonia cannot be excluded. Assessment & Plan - Diagnosis (1) Atrial fibrillation with normal ventricular rate Is this a current diagnosis for this admission?: Yes Plan: With known history of A. fib with RVR. Patient currently on metoprolol. No anticoagulation due to her history of subdural hematoma. Will continue telemetry. Will replace electrolytes as needed. (2) CHF (congestive heart failure) Qualifiers: Heart failure type: diastolic Heart failure chronicity: unspecified Qualified Code(s): I50.30 - Unspecified diastolic (congestive) heart failure Is this a current diagnosis for this admission?: Yes Plan: She was diastolic heart failure. Patient receiving diuresis. Patient still with bilateral pleural effusions which appear to be progressively worse. Patient states that the edema of her lower extremities are improved. (3) Peripheral edema Is this a current diagnosis for this admission?: Yes Plan: Peripheral edema secondary to congestive heart failure. Patient is receiving Lasix. Patient swelling is improving. (4) Pleural effusion Is this a current diagnosis for this admission?: Yes Plan: Secondary to congestive heart failure. Plan is for left-sided thoracentesis in the morning. (5) Subdural hematoma Is this a current diagnosis for this admission?: Yes Plan: Continue supportive care and avoid anticoagulation. (6) Hypokalemia Is this a current diagnosis for this admission?: Yes Plan: Patient given replacement. Will continue to monitor. - Time Time Spent with patient: 15-24 minutes Anticipated discharge: Home with Homehealth Within: within 72 hours
--- NOTE | 2017-06-22 21:35 | PDOC PROGRESS REPORT ---
Subjective Progress Note for:: 06/20/17 Subjective:: Patient tolerated procedure well. Patient states he feels pretty good. Explained to patient the plan is for a tap of the right side in the morning. Patient is looking forward to that. Reason For Visit: ACUTE DECOMPENSATED CHF,ATRIAL FIBRILLATION WITH A Physical Exam Vital Signs: Temp Pulse Resp BP Pulse Ox 99.2 F 110 H 17 97/75 L 97 06/20/17 19:25 06/20/17 19:25 06/20/17 19:25 06/20/17 19:25 06/20/17 19:25 Intake & Output 06/19/17 06/20/17 06/21/17 06:59 06:59 06:59 Intake Total 1117 343 490 Output Total 800 760 Balance 317 -417 490 Weight 54.3 kg 53.7 kg General appearance: PRESENT: no acute distress, thin Head exam: PRESENT: other - Bitemporal wasting. Indentation of the right temporal area. Eye exam: PRESENT: EOMI. ABSENT: scleral icterus Ear exam: PRESENT: normal external ear exam Mouth exam: PRESENT: moist Neck exam: ABSENT: carotid bruit, JVD, lymphadenopathy, thyromegaly Respiratory exam: PRESENT: decreased breath sounds. ABSENT: rales, rhonchi, wheezes Cardiovascular exam: PRESENT: RRR. ABSENT: diastolic murmur, rubs, systolic murmur GI/Abdominal exam: PRESENT: normal bowel sounds, soft. ABSENT: distended, guarding, mass, organolmegaly, rebound, tenderness Rectal exam: PRESENT: deferred Extremities exam: PRESENT: full ROM. ABSENT: calf tenderness, clubbing, pedal edema Neurological exam: PRESENT: alert, awake, oriented to person, oriented to place , oriented to time, oriented to situation, CN II-XII grossly intact. ABSENT: motor sensory deficit Psychiatric exam: PRESENT: appropriate affect, normal mood. ABSENT: homicidal ideation, suicidal ideation Skin exam: PRESENT: dry, intact, warm. ABSENT: cyanosis, rash Results Laboratory Results: 06/20/17 05:15 06/20/17 05:15 06/20/17 06/20/17 06/20/17 05:15 05:15 08:56 WBC 2.9 L RBC 3.58 L Hgb 9.8 L Hct 30.3 L MCV 85 MCH 27.5 MCHC 32.5 RDW 16.1 H Plt Count 250 Seg Neutrophils % 43.0 Lymphocytes % 38.9 Monocytes % 14.1 H Eosinophils % 2.4 Basophils % 1.6 Absolute Neutrophils 1.2 L Absolute Lymphocytes 1.1 Absolute Monocytes 0.4 Absolute Eosinophils 0.1 Absolute Basophils 0.0 Sodium 136.1 L Potassium 3.6 Chloride 99 Carbon Dioxide 29 Anion Gap 8 BUN 27 H Creatinine 0.81 Est GFR ( Amer) > 60 Est GFR (Non-Af Amer) > 60 Glucose 82 Calcium 9.1 Magnesium 1.7 Total Protein 6.5 Fluid Type Fluid Source Fluid Color Fluid Appearance Fluid Viscosity Fluid WBC Fluid RBC 06/20/17 13:47 WBC RBC Hgb Hct MCV MCH MCHC RDW Plt Count Seg Neutrophils % Lymphocytes % Monocytes % Eosinophils % Basophils % Absolute Neutrophils Absolute Lymphocytes Absolute Monocytes Absolute Eosinophils Absolute Basophils Sodium Potassium Chloride Carbon Dioxide Anion Gap BUN Creatinine Est GFR ( Amer) Est GFR (Non-Af Amer) Glucose Calcium Magnesium Total Protein Fluid Type PLEURAL Fluid Source Fluid Color LIGHT YELLOW Fluid Appearance SLIGHTLY HAZY Fluid Viscosity LIQUID Fluid WBC 264 Fluid RBC 93 06/15/17 04:57 Troponin I < 0.012 Impressions: Venous Doppler Study 06/15/17 00:00 IMPRESSION: NO EVIDENCE DVT OR SVT IN EITHER LEG. Chest X-Ray 06/20/17 00:00 IMPRESSION: BILATERAL PLEURAL EFFUSIONS. NO PNEUMOTHORAX 2 HOURS AFTER THORACENTESIS. Thoracentesis Ultrasound 06/20/17 09:00 IMPRESSION: SUCCESSFUL THORACENTESIS USING ULTRASOUND GUIDANCE. Assessment & Plan - Diagnosis (1) Atrial fibrillation with normal ventricular rate Is this a current diagnosis for this admission?: Yes Plan: With known history of A. fib with RVR. Patient currently on metoprolol. No anticoagulation due to her history of subdural hematoma. Will continue telemetry. Will replace electrolytes as needed. (2) CHF (congestive heart failure) Qualifiers: Heart failure type: diastolic Heart failure chronicity: unspecified Qualified Code(s): I50.30 - Unspecified diastolic (congestive) heart failure Is this a current diagnosis for this admission?: Yes Plan: She has grade 2 diastolic heart failure. Patient receiving diuresis. Patient still with bilateral pleural effusions which appear to be progressively worse. Pedal edema improved. Patient on beta-arsh and Lasix. No SUSIE at this time if patient blood pressure may not be able to tolerate. (3) Hypokalemia Is this a current diagnosis for this admission?: Yes Plan: Patient given replacement. Potassium level is now normal. (4) Hypothyroidism Qualifiers: Hypothyroidism type: acquired Qualified Code(s): E03.9 - Hypothyroidism, unspecified Is this a current diagnosis for this admission?: Yes Plan: Patient on thyroid replacement. (5) Peripheral edema Is this a current diagnosis for this admission?: Yes Plan: Peripheral edema secondary to congestive heart failure. Patient is receiving Lasix. Patient swelling is improving. Doppler negative for DVT. (6) Pleural effusion Is this a current diagnosis for this admission?: Yes Plan: Secondary to congestive heart failure. P is status post left thoracentesis. Plan is for right sided thoracentesis in a.m. (7) Subdural hematoma Is this a current diagnosis for this admission?: Yes Plan: Continue supportive care and avoid anticoagulation. - Time Time Spent with patient: Less than 15 minutes Anticipated discharge: Home with Homehealth Within: within 72 hours - Inpatient Certification Medical Necessity: Significant Comorbidiites Make Outpatient Treatment Too Risky , Need Close Monitoring Due to Risk of Patient Decompensation
--- NOTE | 2017-06-22 21:39 | PDOC PROGRESS REPORT ---
Subjective Progress Note for:: 06/21/17 Subjective:: Patient is status post right-sided thoracentesis. Patient stated it went well. Patient states she is looking forward to going home if I think she is ready. Patient states that she is still weak on her feet but gets therapy at home. Reason For Visit: ACUTE DECOMPENSATED CHF,ATRIAL FIBRILLATION WITH A Physical Exam Vital Signs: Temp Pulse Resp BP Pulse Ox 98.6 F 101 H 20 150/67 H 98 06/21/17 20:50 06/21/17 20:50 06/21/17 20:50 06/21/17 20:50 06/21/17 20:50 Intake & Output 06/20/17 06/21/17 06/22/17 06:59 06:59 06:59 Intake Total 343 640 545 Output Total 760 1200 Balance -417 640 -655 Weight 53.7 kg 53.3 kg General appearance: PRESENT: no acute distress, thin Head exam: PRESENT: other - Indentation of the right temporal area. Eye exam: PRESENT: conjunctiva pink, EOMI, PERRLA. ABSENT: scleral icterus Ear exam: PRESENT: normal external ear exam Mouth exam: PRESENT: moist, tongue midline Neck exam: ABSENT: carotid bruit, JVD, lymphadenopathy, thyromegaly Respiratory exam: PRESENT: clear to auscultation ruthann. ABSENT: rales, rhonchi, wheezes Cardiovascular exam: PRESENT: RRR. ABSENT: diastolic murmur, rubs, systolic murmur Pulses: PRESENT: +2 pedal pulses bilateral - Improve GI/Abdominal exam: PRESENT: normal bowel sounds, soft. ABSENT: distended, guarding, mass, organolmegaly, rebound, tenderness Rectal exam: PRESENT: deferred Extremities exam: PRESENT: full ROM. ABSENT: calf tenderness, clubbing, pedal edema Neurological exam: PRESENT: alert, awake, oriented to person, oriented to place , oriented to time, oriented to situation, CN II-XII grossly intact. ABSENT: motor sensory deficit Psychiatric exam: PRESENT: appropriate affect, normal mood. ABSENT: homicidal ideation, suicidal ideation Skin exam: PRESENT: dry, intact, warm, other - Erythema of the bilateral lower extremities. ABSENT: cyanosis, rash Results Laboratory Results: 06/20/17 05:15 06/20/17 05:15 06/21/17 06/21/17 08:54 14:50 Total Protein 5.8 L Fluid Type PLEURAL Fluid Source LUNG Fluid Color YELLOW Fluid Appearance CLEAR Fluid Viscosity LIQUID Fluid WBC 92 Fluid RBC 1 06/15/17 04:57 Troponin I < 0.012 Impressions: Venous Doppler Study 06/15/17 00:00 IMPRESSION: NO EVIDENCE DVT OR SVT IN EITHER LEG. Thoracentesis Ultrasound 06/21/17 09:00 IMPRESSION: SUCCESSFUL THORACENTESIS USING ULTRASOUND GUIDANCE. Chest X-Ray 06/21/17 17:00 IMPRESSION: There appears to be mild subsegmental atelectasis in the lung bases. There is no pneumothorax. Cardiomegaly is present with no tuan failure. Assessment & Plan - Diagnosis (1) Stasis dermatitis of both legs Is this a current diagnosis for this admission?: Yes Plan: Patient with bilateral stasis dermatitis. This has worsened over the last several days despite improvement in patient swelling. Will start patient on cefazolin. Plan is to discharge patient on Keflex for 10 day course. (2) Atrial fibrillation with normal ventricular rate Is this a current diagnosis for this admission?: Yes Plan: With known history of A. fib with RVR. Patient currently on metoprolol. No anticoagulation due to her history of subdural hematoma. Will continue telemetry. Will replace electrolytes as needed. (3) CHF (congestive heart failure) Qualifiers: Heart failure type: diastolic Heart failure chronicity: unspecified Qualified Code(s): I50.30 - Unspecified diastolic (congestive) heart failure Is this a current diagnosis for this admission?: Yes Plan: Grade 2 diastolic heart failure. Patient receiving diuresis. Patient on beta- arsh and Lasix. No SUSIE at this time if patient blood pressure may not be able to tolerate. (4) Hypokalemia Is this a current diagnosis for this admission?: Yes Plan: Resolved. (5) Hypothyroidism Qualifiers: Hypothyroidism type: acquired Qualified Code(s): E03.9 - Hypothyroidism, unspecified Is this a current diagnosis for this admission?: Yes Plan: Patient on thyroid replacement. T4 level was normal. (6) Peripheral edema Is this a current diagnosis for this admission?: Yes Plan: Peripheral edema secondary to congestive heart failure. Patient is receiving Lasix. Patient swelling is improving. Doppler negative for DVT. (7) Pleural effusion Is this a current diagnosis for this admission?: Yes Plan: Secondary to congestive heart failure. She is status post bilateral thoracentesis. Plan is for discharge in a.m. (8) Subdural hematoma Is this a current diagnosis for this admission?: Yes Plan: Continue supportive care and avoid anticoagulation. - Time Time Spent with patient: Less than 15 minutes Anticipated discharge: Home with Homehealth Within: within 24 hours
--- NOTE | 2017-06-22 21:48 | PDOC DISCHARGE SUMMARY ---
General - Admit/Disc Date/PCP Admission Date/Primary Care Provider: 06/14/17 17:35 DANY LEAVITT MD Discharge Date: 06/22/17 - Discharge Diagnosis (1) Stasis dermatitis of both legs Is this a current diagnosis for this admission?: Yes (2) Atrial fibrillation with normal ventricular rate Is this a current diagnosis for this admission?: Yes (3) CHF (congestive heart failure) Is this a current diagnosis for this admission?: Yes (4) Hypokalemia Is this a current diagnosis for this admission?: Yes (5) Hypothyroidism Is this a current diagnosis for this admission?: Yes (6) Peripheral edema Is this a current diagnosis for this admission?: Yes (7) Pleural effusion Is this a current diagnosis for this admission?: Yes (8) Subdural hematoma Is this a current diagnosis for this admission?: Yes - Additional Information Resuscitation Status: Do Not Intubate Discharge Diet: Cardiac Discharge Activity: Activity As Tolerated, Balance Activity w/Rest Prescriptions: Cephalexin Monohydrate [Keflex 500 mg Capsule] 500 mg PO BID 10 Days #20 capsule Home Medications: Cyclosporine 0.05% Oph Emulsio [Restasis 0.05% Oph Emulsion Pf 0.4 ml] 1 drop OU Q12 06/14/17 Furosemide [Lasix 20 mg Tablet] 20 mg PO QAM 06/14/17 Gabapentin [Neurontin 300 mg Capsule] 300 mg PO Q12 06/14/17 Levothyroxine Sodium [Synthroid 0.075 mg Tablet] 0.075 mg PO DAILY 06/14/17 Metoprolol Tartrate [Lopressor 25 mg Tablet] 25 mg PO Q12 06/14/17 Omeprazole 40 mg PO DAILY 06/14/17 Simvastatin [Zocor 20 mg Tablet] 20 mg PO QHS 06/14/17 Tamsulosin HCl [Flomax 0.4 mg Cap.sr] 0.4 mg PO DAILY 06/14/17 Temazepam [Restoril 7.5 mg Capsule] 7.5 mg PO QHS 06/14/17 Cephalexin Monohydrate [Keflex 500 mg Capsule] 500 mg PO BID 10 Days #20 capsule 06/22/17 History of Present Illness History of Present Illness: REMIGIO GOMEZ is a 81 year old female MARTHA GOMEZ is a 81 year old female with Recent left-sided subdural hematoma with a slight midline shift and she was transferred to [place] where she apparently had surgical interventions details of which not available. Patient was in the rehab for about 4 weeks and just left about 10 days ago. She says she has had some lower extremity swelling for a while but it appeared to get worse recently. He was told at the rehab that she needed to follow-up with a concrete engineering technician and in fact appointment with Dr. Meek was today. The subsequently sent her to the emergency room for further evaluation felt she was in decompensated CHF. Patient denies any prior history of CHF and in fact denies any prior history of atrial fibrillation although she was found to be in atrial fibrillation with a controlled response. Considering the fact that patient has been in hospital as recently as April of this year she knows nothing about atrial fibrillation this may indeed be new Currently denies any chest pain nausea vomiting or palpitations. Patient also gives a remote history of a intracranial hemorrhage in 2002 that she had surgery at [facility]. The recent subdural hematoma followed a fall Original H&P was dictated by Dr. Graham. Please refer to it for further details. Hospital Course Hospital Course: Despite patient giving a history of not ever having A. fib with RVR, patient daughter gives a history of patient being diagnosed with A. fib with RVR at [facility] where she had her surgical interventions. She was treated with this using a beta-elen. Patient was not placed on any anticoagulation due to her recent diagnosis of subdural hematoma. Patient had peripheral edema secondary to grade 2 diastolic heart failure. Patient was continued on her beta-elen along with Lasix. Venous Dopplers were completed to rule out any DVT. Patient venous Dopplers were negative. Patient also have bilateral pleural effusions most likely secondary to the grade 2 diastolic dysfunction and uncontrolled A. fib. Patient underwent bilateral thoracentesis. Approximately half a liter was drawn off of each side. Patient for fluid was negative for infection. Patient was continued on her thyroid medication for hypothyroidism. Patient T4 is normal. Patient developed this is dermatitis that did not improve with diuresis. Patient was started on cefazolin transitioned to oral Keflex on discharge. Patient should try to wear compression stockings which will also help with improving the stasis dermatitis. Physical Exam Vital Signs: Temp Pulse Resp BP Pulse Ox 98.5 F 81 18 103/67 100 06/22/17 12:43 06/22/17 12:43 06/22/17 12:43 06/22/17 12:43 06/22/17 12:43 Intake & Output 06/21/17 06/22/17 06/23/17 06:59 06:59 06:59 Intake Total 640 745 475 Output Total 1200 Balance 640 -522 475 Weight 53.3 kg 54.6 kg General appearance: PRESENT: no acute distress, thin Head exam: PRESENT: other - Bitemporal wasting Eye exam: PRESENT: EOMI. ABSENT: scleral icterus Ear exam: PRESENT: normal external ear exam Mouth exam: PRESENT: moist Neck exam: ABSENT: carotid bruit, JVD, lymphadenopathy, thyromegaly Respiratory exam: PRESENT: clear to auscultation ruthann. ABSENT: rales, rhonchi, wheezes Cardiovascular exam: PRESENT: RRR. ABSENT: diastolic murmur, rubs, systolic murmur GI/Abdominal exam: PRESENT: normal bowel sounds, soft. ABSENT: distended, guarding, mass, organolmegaly, rebound, tenderness Rectal exam: PRESENT: deferred Extremities exam: PRESENT: full ROM, pedal edema - Erythema of bilateral lower extremities right greater than left mildly improved.. ABSENT: calf tenderness, clubbing Neurological exam: PRESENT: alert, awake, oriented to person, oriented to place , oriented to time, oriented to situation, CN II-XII grossly intact, other - Hearing aids in place. ABSENT: motor sensory deficit Psychiatric exam: PRESENT: appropriate affect, normal mood. ABSENT: homicidal ideation, suicidal ideation Skin exam: PRESENT: dry, intact, warm, other. ABSENT: cyanosis, rash Results Laboratory Results: 06/20/17 05:15 06/20/17 05:15 06/20/17 06/20/17 06/20/17 13:47 13:47 13:47 Fluid Glucose 110 Fluid Total Protein Fluid LDH 106 Fluid Amylase 42 06/20/17 13:47 Fluid Glucose Fluid Total Protein 2.9 Fluid LDH Fluid Amylase 06/15/17 04:57 Troponin I < 0.012 Impressions: Venous Doppler Study 06/15/17 00:00 IMPRESSION: NO EVIDENCE DVT OR SVT IN EITHER LEG. Thoracentesis Ultrasound 06/21/17 09:00 IMPRESSION: SUCCESSFUL THORACENTESIS USING ULTRASOUND GUIDANCE. Chest X-Ray 06/21/17 17:00 IMPRESSION: There appears to be mild subsegmental atelectasis in the lung bases. There is no pneumothorax. Cardiomegaly is present with no tuan failure. Qualifiers - * P[facility]INT BEING DISCHARGED WITH ANY OF THE FOLLOWING DIAGNOSIS?: Heart Failure HF Pt being discharged on ACEI for LVEF less than 40%?: No Reason(s) for not prescribing ACEI:: Tx not tolerated HF Pt being discharged on ARBS for LVEF less than 40%?: No Reason(s) for not prescribing ARBS:: Tx not tolerated HF Pt with Afib discharged with Warfarin?: No Reason(s) for not prescribing Warfarin:: Contraindicated HF Pt discharged on evidence-based Beta Elen:: Yes Plan Time Spent: Greater than 30 Minutes
[2017-06-23] MEDS ORDERED: CEFAZOLIN 2 GM/D5W RTU 2 GM/50 ML RTUPB IV SCH (15:00)
== END 2017-06-22 13:34 | disposition home health service (06) | DRG 292 ==
LOC: ER 15:20 → EH 17:35 → UNDOADMIN 17:35 → 3S 21:10 → UNDODISIN 06-16 13:54
PROVIDERS: ADMIT Student in an Organized Health Care Education/Training Program; ATTEND Student in an Organized Health Care Education/Training Program
PROC: 0W9B3ZX Drainage of Left Pleural Cavity, Percutaneous Approach, Diagnostic (ICD-10-PCS; principal; 2017-06-20)
PROC: 0W993ZX Drainage of Right Pleural Cavity, Percutaneous Approach, Diagnostic (ICD-10-PCS; 2017-06-21)
DX: I50.31 Acute diastolic (congestive) heart failure (principal); J91.8 Pleural effusion in other conditions classified elsewhere; I48.91 Unspecified atrial fibrillation; I11.0 Hypertensive heart disease with heart failure; E87.6 Hypokalemia; M19.90 Unspecified osteoarthritis, unspecified site; Z90.49 Acquired absence of other specified parts of digestive tract; Z90.710 Acquired absence of both cervix and uterus; E03.9 Hypothyroidism, unspecified; Z86.79 Personal history of other diseases of the circulatory system; I87.2 Venous insufficiency (chronic) (peripheral); Z86.73 Personal history of transient ischemic attack (TIA), and cerebral infarction without residual deficits
CPT/HCPCS: 32555; 36415; 71045; 71046; 80048; 80053; 81001; 82150; 82550; 82553; 82945; 83615; 83735; 83880; 84155; 84157; 84439; 84443; 84484; 85025; 85027; 85610; 85730; 87015; 87070; 87075; 87101; 87116; 87205; 87206; 87252; 88305; 88341; 88342; 89050; 93005; 93010; 93306; 93970; 99285; J0690; J1940; J3490